=== PATIENT | female | born 1950 | race Caucasian/White ===

== ENCOUNTER 2016-12-21 10:40 | Emergency (ER) | payer OTHER ==
[~2016-12-21] VITALS: Ht 165.1 cm; Wt 80.0 kg
[~2016-12-21 10:40] MED LIST: DIPH2%T PO; NACL5%O LEFT EYE; OLAN2.5 PO; POLY10O OS; SYSTSOL7 EACH EYE; VITA100020 SL; VITA200017 PO
[2016-12-21 10:42] VITALS: BP 116/59; PULSE 70; RESP 12; TEMP 98.4; O2SAT 98
[2016-12-21] MEDS ORDERED: SYSTSOL9 RIGHT EYE (12:01)
[2016-12-21] MEDS ORDERED: DIPH50TA3 PO (12:01)
[2016-12-21] MEDS ORDERED: DONE5TAB7 PO (12:01)
[2016-12-21] MEDS ORDERED: MAXI0.1O LEFT EYE (12:01)
[2016-12-21] MEDS ORDERED: VITA10002 PO (12:01)
[2016-12-21] MEDS ORDERED: ZYPR5TAB PO (12:01)
[2016-12-21] MEDS ORDERED: CHOL1TAB42 PO (12:01)
[2016-12-21] MEDS ORDERED: SODIUM CHLORIDE 0.9% FLUSH 5 ML FLUSH IVF PRN (12:15)
[2016-12-21 13:08] LABS: BLOOD, URINE NEG (NEG); COMMENT (UR) CATH-CULT NOT IND; CULTURE IF INDICATED CATH CULTURE NOT IND; GLUCOSE,URINE NEG (NEG); KETONE, URINE NEG (NEG); MUCUS URINE FEW /lpf (OCC); NITRITE,URINE NEG (NEG); PH, URINE 6.5 (5.0-8.5); URINE COLOR YELLOW (YELLW/STRAW)
--- NOTE | 2016-12-21 13:15 | RADRPT ---
EXAM DATE/TIME: 12/21/2016 12:41 [facility] COMPARISON: No previous studies available for comparison. INDICATIONS : Syncope with shortness of breath. MEDICAL HISTORY : None. SURGICAL HISTORY : None. ENCOUNTER: Initial ACUITY: 1 day PAIN SCORE: Non-responsive. LOCATION: Bilateral chest FINDINGS: A single view of the chest demonstrates the lungs to be symmetrically aerated without evidence of mas s, infiltrate or effusion. The cardiomediastinal contours are unremarkable. Osseous structures are intact. CONCLUSION: No acute disease. Jb Montero MD on December 21, 2016 at 13:13 Board Certified Radiologist. This report was verified electronically.
--- NOTE | 2016-12-21 13:15 | RADRPT ---
EXAM DATE/TIME: 12/21/2016 12:55 [facility] COMPARISON: CT BRAIN W/O CONTRAST, October 27, 2013, 19:37. INDICATIONS : Found on floor, altered mental status RADIATION DOSE: 56.35 CTDIvol (mGy) MEDICAL HISTORY : Dementia. Cardiovascular disease Renal insufficiency. SURGICAL HISTORY : Appendectomy. Cholecystectomy.Hysterectomy. ENCOUNTER: Initial ACUITY: 1 day PAIN SCALE: Non-responsive LOCATION: cranial TECHNIQUE: Multiple contiguous axial images were obtained of the head. Using automated exposure control and adj ustment of the mA and/or kV according to patient size, radiation dose was kept as low as reasonably a chievable to obtain optimal diagnostic quality images. FINDINGS: CEREBRUM: The ventricles are normal for age. No evidence of midline shift, mass lesion, hemorrhage or acute in farction. No extra-axial fluid collections are seen. POSTERIOR FOSSA: The cerebellum and brainstem are intact. The 4th ventricle is midline. The cerebellopontine angle i s unremarkable. EXTRACRANIAL: The visualized portion of the orbits is intact. 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 SKULL: The calvaria is intact. No evidence of skull fracture. CONCLUSION: Negative for an acute process. Gonzalo Red MD FACR on December 21, 2016 at 13:12 Board Certified Radiologist. This report was verified electronically.
--- NOTE | 2016-12-21 13:57 | PD ---
HPI Chief Complaint: Medical Clearance Time Seen by Provider: 12:07 Travel History International Travel<30 days: No Contact w/Intl Traveler<30days: No Traveled to known affect area: No History of Present Illness HPI patient is a 66-year-old female presents emergency department for complaints of tremors. She has a history of dementia and according to the aide speaks but is mostly on telemetry. This extremely limits history. Patient apparently was found on the floor next to her bed this morning. Unsure if she fell or if she lowered herself to the ground. According to the aide who is with her while eating breakfast and she had some jerking motions of both upper extremities both lower extremities. This caused her to drop her juice this morning while she was eating. The aide states that she has not seen any of these tremors since breakfast this morning. She describes a jerking motion of all the extremities which happened only a few times and lasted for only a split second. No loss of consciousness. I discussed with the physician on-call decided she should be transferred to emergency department for evaluation. Otherwise the patient is been acting her normal self. PFSH Past Medical History Bipolar Disorder: Yes Dementia: Yes Diminished Hearing: No Headaches: Yes Insomnia: Yes Psychiatric: Yes (CHRONIC ISSUES) ?: Not Menopausal: Yes : 4 Para: 4 Miscarriage: 0 : 0 Tubal Ligation: Yes Past Surgical History Appendectomy: Yes Section: Yes (x4) Cholecystectomy: Yes Gynecologic Surgery: Yes (C SECTION X4 PER MEDICAL RECORD, ) Hysterectomy: Yes Oral Surgery: Yes Other Surgery: Yes (SHOULDER) Social History Alcohol Use: No (Hx ETOH but denies abuse.) Tobacco Use: No (States was smoking 3PPD) Substance Use: No (Patient denies.) Allergies-Medications (Allergen,Severity, Reaction): Coded Allergies: Codeine (Verified Allergy, Unknown, 12/21/16) Per [facility]. Opiate Agonists (Narcotics) (Unverified Allergy, Unknown, 12/21/16) SENT FROM FACILITY LISTED ALLERGY Reported Meds & Prescriptions Reported Meds & Active Scripts Active Reported Systane Ultra Opth (Polyethylene Glycol-Propylene Opth) 0.4-0.3% Soln 2 Drop BID Diphenhydramine HCl (Diphenhydramine HCl (Sleep)) 50 Mg Tab 50 Mg PO BID Vitamin D-3 (Cholecalciferol) 2,000 Unit Tab 2,000 Units PO DAILY Vitamin B-12 (Cyanocobalamin) 1,000 Mcg Tab 1,000 Mcg PO DAILY Zyprexa (Olanzapine) 5 Mg Tab 5 Mg PO HS Donepezil 5 Mg Tab 5 Mg PO HS Maxitrol Opth Oint (Hxfkhpxs-Pnbylfnpp-Yokecxpoheykr Opth Oint) 3.5 Gm Oint 1 Applic LEFT EYE QID Review of Systems Except as stated in HPI: all other systems reviewed are Neg Physical Exam Narrative GENERAL: Well-developed well-nourished no apparent distress. Smiles and pleasantly confused. Appears severely demented. SKIN: Warm and dry. There is a small abrasion to the left forearm. Superficial. It is also a small abrasion to the left knee. HEAD: Atraumatic. Normocephalic. No boyle signs no raccoons eyes. EYES: Pupil equal and round. 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 No scleral icterus. No injection or drainage. ENT: No nasal bleeding or discharge. Mucous membranes pink and moist. TMs clear bilaterally NECK: Trachea midline. No JVD. CARDIOVASCULAR: Regular rate and rhythm. No murmur appreciated. RESPIRATORY: No accessory muscle use. Clear to auscultation. Breath sounds equal bilaterally. GASTROINTESTINAL: Abdomen soft, non-tender, nondistended. Hepatic and splenic margins not palpable. MUSCULOSKELETAL: No obvious deformities. No clubbing. No cyanosis. No edema. NEUROLOGICAL: Awake and alert. Follows commands in all 4 extremities. No obvious cranial nerve abnormalities. Ambulates narrow based gait balanced and coordinated. PSYCHIATRIC: Appropriate mood and affect; insight and judgment normal. Data Data Last Documented VS Vital Signs Date Time Temp Pulse Resp B/P Pulse Ox O2 Delivery O2 Flow Rate FiO2 12/21/16 14:29 63 99 12/21/16 10:42 98.4 12 116/59 Room Air Orders Basic Metabolic Panel (Bmp) (12/21/16 12:14) Complete Blood Count With Diff (12/21/16 12:14) Prothrombin Time / Inr (Pt) (12/21/16 12:14) Act Partial Throm Time (Ptt) (12/21/16 12:14) Troponin I (12/21/16 12:14) Thyroid Stimulating Hormone (12/21/16 12:14) Urinalysis - C+S If Indicated (12/21/16 12:14) Chest, Single Ap (12/21/16 12:14) Ct Brain W/O Iv Contrast(Rout) (12/21/16 12:14) Blood Glucose (12/21/16 12:14) Ecg Monitoring (12/21/16 12:14) Iv Access Insert/Monitor (12/21/16 12:14) Oximetry (12/21/16 12:14) Sodium Chloride 0.9% Flush (Ns Flush) (12/21/16 12:15) Cath For Specimen (12/21/16 12:14) Ct Cerv Spine W/O Contrast (12/21/16 ) Labs Laboratory Tests Test 12/21/16 12/21/16 12:42 14:51 Urine Color YELLOW Urine Turbidity CLEAR Urine pH 6.5 Urine Specific Bryant 1.016 Urine Protein NEG mg/dL Urine Glucose (UA) NEG mg/dL Urine Ketones NEG mg/dL Urine Occult Blood NEG Urine Nitrite NEG Urine Bilirubin NEG Urine Urobilinogen LESS THAN 2.0 MG/DL Urine Leukocyte Esterase TRACE Urine RBC 1 /hpf Urine WBC 1 /hpf Urine Mucus FEW /lpf Microscopic Urinalysis Comment CATH-CULT NOT IND White Blood Count 5.8 TH/MM3 Red Blood Count 4.08 MIL/MM3 Hemoglobin 12.8 GM/DL Hematocrit 37.0 % Mean Corpuscular Volume 90.7 FL Mean Corpuscular Hemoglobin 31.4 PG Mean Corpuscular Hemoglobin 34.6 % Concent Red Cell Distribution Width 13.0 % Platelet Count 213 TH/MM3 Mean Platelet Volume 8.5 FL Neutrophils (%) (Auto) 39.3 % Lymphocytes (%) (Auto) 49.2 % Monocytes (%) (Auto) 9.0 % Eosinophils (%) (Auto) 2.1 % Basophils (%) (Auto) 0.4 % Neutrophils # (Auto) 2.3 TH/MM3 Lymphocytes # (Auto) 2.9 TH/MM3 Monocytes # (Auto) 0.5 TH/MM3 Eosinophils # (Auto) 0.1 TH/MM3 Basophils # (Auto) 0.0 TH/MM3 CBC Comment DIFF FINAL Differential Comment Prothrombin Time 10.8 SEC Prothromb Time International 1.0 RATIO Ratio Activated Partial 28.8 SEC Thromboplast Time Sodium Level 140 MEQ/L Potassium Level 3.5 MEQ/L Chloride Level 107 MEQ/L Carbon Dioxide Level 24.9 MEQ/L Anion Gap 8 MEQ/L Blood Urea Nitrogen 20 MG/DL Creatinine 0.74 MG/DL Estimat Glomerular Filtration 79 ML/MIN Rate Random Glucose 96 MG/DL Calcium Level 8.6 MG/DL Troponin I LESS THAN 0.02 NG/ML Thyroid Stimulating Hormone 0.701 uIU/ML 3rd Gen [facility] Medical Decision Making Medical Screen Exam Complete: Yes Emergency Medical Condition: Yes Differential Diagnosis Fall, tremor, head injury, neck injury, electro-light abnormality, dehydration. Narrative Course Patient was roomed emergency department she appears well in no apparent distress. CT head and C-spine are negative. Electrolytes within normal limits and urine is noninfected. Patient has not demonstrated any abnormal movements to me while in the emergency department or to the aide while she is in emergency department. She is stable for discharge this time further workup as an outpatient. My overall impression is a severely demented woman who probably had a fall this morning and some abnormal jerking movements. However she seems to have suffered no radiographically significant traumatic event. She has mild abrasions on her forearm as well as her arm which are inconsequential and not indications for x-rays at this time. Diagnosis Primary Impression: Tremor Additional Instructions: Patient workup including CT head CMP CBC CT C-spine all negative. She has not exhibited any abnormal tremors or physical findings in the emergency department. She is stable for return to her facility and further workup by facility physician. Disposition: 01 DISCHARGE HOME Condition: Stable Jb Holman MD Dec 21, 2016 13:57
[2016-12-21 14:29] VITALS: PULSE 63; O2SAT 99
--- NOTE | 2016-12-21 14:36 | RADRPT ---
EXAM DATE/TIME: 12/21/2016 12:55 [facility] COMPARISON: No previous studies available for comparison. INDICATIONS : Found on floor, altered mental status RADIATION DOSE: 30.68 CTDIvol (mGy) MEDICAL HISTORY : Dementia. Cardiovascular disease Renal insufficiency. SURGICAL HISTORY : Appendectomy. Cholecystectomy. Hysterectomy. ENCOUNTER: Initial ACUITY: 1 day PAIN SCALE: Non-responsive LOCATION: Neck TECHNIQUE: Volumetric scanning of the cervical spine was performed. Multiplanar reconstructions i n the sagittal, coronal and oblique axial planes were performed. Using automated exposure control a nd adjustment of the mA and/or kV according to patient size, radiation dose was kept as low as reason ably achievable to obtain optimal diagnostic quality images. FINDINGS: There are mild degenerative changes subluxations at C5-C6 and C6-C7. Anterior osteoph ytes are seen at C4-C5, C5-C6 and C6-C7. C1 and C2 are intact. C2-C3: There is mild uncinate ridging present without significant spinal stenosis. Neural foramina are adequate. C3-C4: Mild facet disease present with minimal bilateral neural foraminal encroachment. C4-C5: Moderate facet disease is present on the right when compared to the left with moderate right- sided neural foraminal encroachment. C5-C6: Moderate facet disease is present with bilateral neural foraminal encroachment. C6-C7: The bony spinal canal is normal in size. No evidence of disc bulge or herniation. The neura l foramina are bilaterally patent. C7-T1: The bony spinal canal is normal in size. No evidence of disc bulge or herniation. The neura l foramina are bilaterally patent. CONCLUSION: Degenerative changes as described above. There is no evidence for fracture. Gonzalo Red MD FACR on December 21, 2016 at 13:59 Board Certified Radiologist. This report was verified electronically.
[2016-12-21 15:46] LABS: AUTOMATED NEUTROPHIL # 2.3 TH/MM3 (1.8-7.7); BASOPHIL % 0.4 % (0.0-2.0); EOSINOPHIL # 0.1 TH/MM3 (0-0.4); EOSINOPHIL % 2.1 % (0.0-4.0); HEMO FLAGS DIFF FINAL; LYMPH % 49.2 % (9.0-44.0); LYMPHOCYTE # 2.9 TH/MM3 (1.0-4.8); MEAN CELL VOLUME 90.7 FL (80.0-100.0); MEAN CORPUSCULAR HEMOGLOBIN 31.4 PG (27.0-34.0); MEAN CORPUSCULAR HGB CONC 34.6 % (32.0-36.0); NEUT % 39.3 % (16.0-70.0); PLATELET COUNT 213 TH/MM3 (150-450); RED BLOOD COUNT 4.08 MIL/MM3 (4.00-5.30); WHITE BLOOD COUNT 5.8 TH/MM3 (4.0-11.0)
[2016-12-21 15:52] LABS: ANION GAP 8 MEQ/L (5-15); BICARBONATE 24.9 MEQ/L (21.0-32.0); BLOOD UREA NITROGEN 20 MG/DL (7-18); CHLORIDE 107 MEQ/L (98-107); GLOMERULAR FILTRATION RATE 79 ML/MIN (>89); POTASSIUM 3.5 MEQ/L (3.5-5.1); SODIUM (NA) 140 MEQ/L (136-145)
[2016-12-21 16:03] LABS: APTT (PATIENT) 28.8 SEC (24.3-30.1); PROTHROMBIN TIME - PATIENT 10.8 SEC (9.8-11.6)
== END 2016-12-21 16:43 | disposition home or self-care (01) ==
LOC: NEPB 10:40
DX: R25.1 Tremor, unspecified (principal); F03.90 Unspecified dementia, unspecified severity, without behavioral disturbance, psychotic disturbance, mood disturbance, and anxiety; G47.00 Insomnia, unspecified; Z86.59 Personal history of other mental and behavioral disorders; Z87.891 Personal history of nicotine dependence
CPT/HCPCS: 70450; 71010; 72125; 80048; 81001; 84443; 84484; 85025; 85610; 85730; 99284; P9612

== ENCOUNTER 2017-01-10 10:08 | Emergency (ER) | payer OTHER ==
[~2017-01-10] VITALS: Ht 144.8 cm; Wt 74.0 kg
[~2017-01-10 10:08] MED LIST changes: +CHOL1TAB42 PO; -DIPH2%T PO; +DIPH50TA3 PO; +DONE5TAB7 PO; +MAXI0.1O LEFT EYE; -NACL5%O LEFT EYE; -OLAN2.5 PO; -POLY10O OS; -SYSTSOL7 EACH EYE; +SYSTSOL9 RIGHT EYE; +VITA10002 PO; -VITA100020 SL; -VITA200017 PO; +ZYPR5TAB PO
[2017-01-10 10:11] VITALS: BP 120/58; PULSE 66; RESP 17; TEMP 98.4; O2SAT 96
[2017-01-10] MEDS ORDERED: SODIUM CHLOR 0.9% 1000 ML INJ 1,000 ML IV ONE (10:15)
--- NOTE | 2017-01-10 10:24 | PD ---
HPI Chief Complaint: Syncope/Near-Syncope Time Seen by Provider: 10:15 Travel History International Travel<30 days: No Contact w/Intl Traveler<30days: No Traveled to known affect area: No History of Present Illness HPI Cyst 66 year-old woman who presents to the emergency department referred in from [facility] where she stays after near syncopal/syncopal episodes this morning. EMS reports that she had 2 episodes of diarrhea this morning and after each one had a near syncopal episode where she kind of slumped over for a few seconds and had to be assisted by jail staff. She has a history of dementia as well as severe chronic psychiatric disease. She doesn't really talk at all or answer questions. She is however normally ambulatory and somewhat independent. History Past Medical History Narrative Medical Right shoulder injury/dislocation Dementia with agitation Chronic psychiatric illness of cognitive impairment Menopausal: Yes : 4 Para: 4 Social History Alcohol Use: No (Hx ETOH but denies abuse.) Tobacco Use: No (States was smoking 3PPD) Allergies-Medications (Allergen,Severity, Reaction): Coded Allergies: Codeine (Verified Allergy, Unknown, 12/21/16) Per [facility]. Opiate Agonists (Narcotics) (Unverified Allergy, Unknown, 12/21/16) SENT FROM FACILITY LISTED ALLERGY Reported Meds & Prescriptions Reported Meds & Active Scripts Active Loperamide (Loperamide HCl) 2 Mg Tab 2 Mg PO DIRECTED PRN One tablet after each loose stool. Not to exceed 8 tablets per day. Reported Systane Ultra Opth (Polyethylene Glycol-Propylene Opth) 0.4-0.3% Soln 2 Drop RIGHT EYE BID Diphenhydramine HCl (Diphenhydramine HCl (Sleep)) 50 Mg Tab 50 Mg PO BID Vitamin D-3 (Cholecalciferol) 2,000 Unit Tab 2,000 Units PO DAILY Vitamin B-12 (Cyanocobalamin) 1,000 Mcg Tab 1,000 Mcg PO DAILY Zyprexa (Olanzapine) 5 Mg Tab 5 Mg PO HS Donepezil 5 Mg Tab 5 Mg PO HS Maxitrol Opth Oint (Szwakvrv-Xmghjkyrs-Tgucfdymzqjoo Opth Oint) 3.5 Gm Oint 1 Applic LEFT EYE QID Review of Systems Except as stated in HPI: all other systems reviewed are Neg Physical Exam Narrative GENERAL: 66 year-old woman, not really verbal, no acute distress. SKIN: Warm and dry. HEAD: Atraumatic. Normocephalic. EYES: Pupils equal and round. No scleral icterus. No injection or drainage. ENT: No nasal bleeding or discharge. Mucous membranes pink and moist. NECK: Trachea midline. No JVD. CARDIOVASCULAR: Regular rate and rhythm. No murmur appreciated. RESPIRATORY: No accessory muscle use. Clear to auscultation. Breath sounds equal bilaterally. GASTROINTESTINAL: Abdomen soft, non-tender, nondistended. Hepatic and splenic margins not palpable. MUSCULOSKELETAL: No obvious deformities. No edema. NEUROLOGICAL: Awake and alert. No eye contact. She has some facial asymmetry with sort ptosis on the left and 1 feet I, but no evidence of facial droop. Moves all extremities. PSYCHIATRIC: Flat affect. No emotional responses stimuli. RECTAL: Light brown stool in the rectal vault. Guiaic positive. Data Data Last Documented VS Vital Signs Date Time Temp Pulse Resp B/P Pulse Ox O2 Delivery O2 Flow Rate FiO2 01/10/17 11:14 78 17 135/60 99 Room Air 01/10/17 10:11 98.4 Orders Electrocardiogram (01/10/17 ) Complete Blood Count With Diff (01/10/17 10:15) Comprehensive Metabolic Panel (01/10/17 10:15) Iv Access Insert/Monitor (01/10/17 10:15) Sodium Chlor 0.9% 1000 Ml Inj (Ns 1000 M (01/10/17 10:15) Labs Laboratory Tests Test 01/10/17 10:00 White Blood Count 5.7 TH/MM3 Red Blood Count 4.03 MIL/MM3 Hemoglobin 12.5 GM/DL Hematocrit 37.0 % Mean Corpuscular Volume 91.8 FL Mean Corpuscular Hemoglobin 31.1 PG Mean Corpuscular Hemoglobin 33.8 % Concent Red Cell Distribution Width 12.8 % Platelet Count 179 TH/MM3 Mean Platelet Volume 8.3 FL Neutrophils (%) (Auto) 86.7 % Lymphocytes (%) (Auto) 6.7 % Monocytes (%) (Auto) 6.0 % Eosinophils (%) (Auto) 0.4 % Basophils (%) (Auto) 0.2 % Neutrophils # (Auto) 5.0 TH/MM3 Lymphocytes # (Auto) 0.4 TH/MM3 Monocytes # (Auto) 0.3 TH/MM3 Eosinophils # (Auto) 0.0 TH/MM3 Basophils # (Auto) 0.0 TH/MM3 CBC Comment DIFF FINAL Differential Comment Sodium Level 142 MEQ/L Potassium Level 3.2 MEQ/L Chloride Level 109 MEQ/L Carbon Dioxide Level 22.8 MEQ/L Anion Gap 10 MEQ/L Blood Urea Nitrogen 26 MG/DL Creatinine 0.84 MG/DL Estimat Glomerular Filtration 68 ML/MIN Rate Random Glucose 184 MG/DL Calcium Level 8.3 MG/DL Total Bilirubin 0.7 MG/DL Aspartate Amino Transf 18 U/L (AST/SGOT) Alanine Aminotransferase 16 U/L (ALT/SGPT) Alkaline Phosphatase 80 U/L Total Protein 6.7 GM/DL Albumin 3.7 GM/DL [facility] Medical Decision Making Medical Screen Exam Complete: Yes Emergency Medical Condition: Yes Interpretation(s) My review of EKG: Normal sinus rhythm at a rate of 64, normal axis, normal intervals, inferior T-wave flattening. QRS 94, QTc 442. CBC unremarkable CMP remarkable for mildly elevated BUN 26, creatinine 0.84 Differential Diagnosis Diarrhea, dizziness, orthostasis, adverse medication effect, arrhythmia, ACS, other Narrative Course Medical decision-making 66 old woman with 2 episodes of syncope/syncope in the setting of diarrhea. Looks generally well. We'll check labs, EKG, IV fluid rehydration, reassess. FINAL: Labs show elevated BUN. This likely suggests dehydration. Some concern for GI bleed. Rectal exam was performed at this point and demonstrated at bedtime light brown liquid stool in the rectal vault, no obvious blood but guaiac positive. We'll continue IV fluids. Imodium. We will road test and if stable, discharge. Diagnosis Primary Impression: Dehydration Additional Impression: Syncope Qualified Code: R55 - Syncope, unspecified syncope type Additional Instructions: Patient likely has syncope/passing out related to diarrhea and dehydration. She did have some microscopic blood in her stool. Recommend she follow up with this with her primary physician when she is feeling better. Use Imodium as needed for diarrhea. Drink plenty of fluids stay well-hydrated. Follow-up with your primary physician for recheck in the next 2-4 days. Return to the emergency department for any new or worsening symptoms. Med/Other Pt SpecificInfo: Prescription(s) given Scripts Loperamide 2 Mg Tab2 Mg PO DIRECTED PRN (DIARRHEA) #8 TAB One tablet after each loose stool. Not to exceed 8 tablets per day. Prov:Viktor Bhatia MD 01/10/17 Disposition: 01 DISCHARGE HOME Condition: Stable Viktor Bhatia MD Jan 10, 2017 10:24
[2017-01-10 10:42] LABS: BASOPHIL % 0.2 % (0.0-2.0); EOSINOPHIL % 0.4 % (0.0-4.0); HEMO FLAGS DIFF FINAL; LYMPH % 6.7 % (9.0-44.0); LYMPHOCYTE # 0.4 TH/MM3 (1.0-4.8); MEAN CELL VOLUME 91.8 FL (80.0-100.0); MEAN CORPUSCULAR HEMOGLOBIN 31.1 PG (27.0-34.0); MEAN CORPUSCULAR HGB CONC 33.8 % (32.0-36.0); NEUT % 86.7 % (16.0-70.0); PLATELET COUNT 179 TH/MM3 (150-450); RED BLOOD COUNT 4.03 MIL/MM3 (4.00-5.30); RED CELL DISTRIBUTION WIDTH 12.8 % (11.6-17.2); WHITE BLOOD COUNT 5.7 TH/MM3 (4.0-11.0)
[2017-01-10 11:02] LABS: ALKALINE PHOSPHATASE 80 U/L (45-117); TOTAL BILIRUBIN ADULT 0.7 MG/DL (0.2-1.0)
[2017-01-10 11:09] LABS: ALT (GPT) 16 U/L (10-53); ANION GAP 10 MEQ/L (5-15); AST (GOT) 18 U/L (15-37); BICARBONATE 22.8 MEQ/L (21.0-32.0); BLOOD UREA NITROGEN 26 MG/DL (7-18); CHLORIDE 109 MEQ/L (98-107); GLOMERULAR FILTRATION RATE 68 ML/MIN (>89); POTASSIUM 3.2 MEQ/L (3.5-5.1); SODIUM (NA) 142 MEQ/L (136-145)
[2017-01-10 11:14] VITALS: BP 135/60; PULSE 78; RESP 17; O2SAT 99
[2017-01-10] MEDS ORDERED: LOPE2TAB3 PO (11:32)
[2017-01-10] MEDS ORDERED: LOPERAMIDE HCL 2 MG CAP PO ONE (11:45)
[2017-01-10 11:50] VITALS: BP 130/67; TEMP 97.8
--- NOTE | 2017-01-11 11:39 | EKG ---
Date Performed: 01/10/2017 Time Performed: 10:20:37 PTAGE: 66 years EKG: Sinus rhythm NONSPECIFIC T-WAVE ABNORMALITY BORDERLINE ECG PREVIOUS TRACING : 12/29/2014 22.53 DOCTOR: Viktor Dickens Interpretating Date/Time 01/11/2017 11:38:37
== END 2017-01-10 11:50 | disposition home or self-care (01) ==
LOC: NEPC 10:08
DX: E86.0 Dehydration (principal); R55 Syncope and collapse; F03.91 Unspecified dementia, unspecified severity, with behavioral disturbance; R94.31 Abnormal electrocardiogram [ECG] [EKG]
CPT/HCPCS: 80053; 85025; 93005; 96360; 99284; J7030

== ENCOUNTER 2017-10-28 15:04 | Emergency (ER) | payer MEDICARE, OTHER ==
[~2017-10-28] VITALS: Ht 165.1 cm; Wt 65.0 kg
[~2017-10-28 15:04] MED LIST changes: +LOPE2TAB3 PO
[2017-10-28 15:09] VITALS: BP 184/81; PULSE 65
[2017-10-28 15:19] VITALS: BP 184/81; PULSE 59; RESP 18; TEMP 99.5; O2SAT 99
[2017-10-28] MEDS ORDERED: DIPH25CA PO (15:22)
[2017-10-28 15:24] VITALS: BP 154/74
--- NOTE | 2017-10-28 15:32 | PD ---
HPI Chief Complaint: Fall Time Seen by Provider: 15:12 Travel History International Travel<30 days: No Contact w/Intl Traveler<30days: No Traveled to known affect area: No History of Present Illness HPI 67yo F with PMH of dementia presents to the ED for evaluation after a witnessed fall at assisted living facility around half an hour ago. Pt has advance dementia and is at baseline mental status as per staff. As per staff, she trip and fell and onto her right side. There is a hematoma in her right maxilla and they were worried about her right hip so they didnt let her ambulate. Pt speaks but does not make sense and does not really follow command which is her baseline. History is limited and pt denies any pain. Staff said pt has frequent falls and not on anticoagulation. Staff denies any fever, cough, vomiting or complain of abdominal pain. PFSH Past Medical History Bipolar Disorder: Yes Dementia: Yes Diminished Hearing: No Headaches: Yes Insomnia: Yes Psychiatric: Yes Menopausal: Yes : 4 Para: 4 Miscarriage: 0 : 0 Tubal Ligation: Yes Past Surgical History Appendectomy: Yes Section: Yes (x4) Cholecystectomy: Yes Gynecologic Surgery: Yes (C SECTION X4 PER MEDICAL RECORD, ) Hysterectomy: Yes Oral Surgery: Yes Other Surgery: Yes (SHOULDER) Social History Alcohol Use: No Tobacco Use: No Substance Use: No Allergies-Medications (Allergen,Severity, Reaction): Coded Allergies: Opioids - Morphine Analogues (Unverified Allergy, Unknown, 10/28/17) SENT FROM FACILITY LISTED ALLERGY Opioids-Meperidine and Related (Unverified Allergy, Unknown, 10/28/17) SENT FROM FACILITY LISTED ALLERGY Opioids-Methadone and Related (Unverified Allergy, Unknown, 10/28/17) SENT FROM FACILITY LISTED ALLERGY codeine (Unverified Allergy, Unknown, 10/28/17) Per [facility]. Reported Meds & Prescriptions Reported Meds & Active Scripts Active Reported Diphenhydramine (Diphenhydramine HCl) 25 Mg Cap 50 Mg PO HS PRN Vitamin D-3 (Cholecalciferol) 2,000 Unit Tab 2,000 Units PO DAILY Vitamin B-12 (Cyanocobalamin) 1,000 Mcg Tab 1,000 Mcg PO DAILY Zyprexa (Olanzapine) 5 Mg Tab 5 Mg PO HS Donepezil 5 Mg Tab 5 Mg PO HS Maxitrol Opth Oint (Ivluelhl-Hxlamyxqp-Lhdzghazznwpg Opth Oint) 3.5 Gm Oint 1 Applic LEFT EYE QID Review of Systems Except as stated in HPI: all other systems reviewed are Neg Physical Exam Narrative GENERAL: 67yo F not in distress. SKIN: Focused skin assessment warm/dry. HEAD: +Hematoma right maxilla. EYES: Left eye: Pt has left eye disease and pupils are not reactive which is baseline. Also with yellow discharge that pt has warm compresses for. Right pupil 4mm. ENT: No nasal bleeding or discharge. Mucous membranes pink and moist. NECK: Trachea midline. No JVD. CARDIOVASCULAR: Regular rate and rhythm. No murmur appreciated. RESPIRATORY: No accessory muscle use. Clear to auscultation. Breath sounds equal bilaterally. GASTROINTESTINAL: Abdomen soft, non-tender, nondistended. MUSCULOSKELETAL: No obvious deformities. No clubbing. No cyanosis. No edema. NEUROLOGICAL: Awake and alert. Pt speaks but could not comprehend what she is saying which is baseline. Pt moves all extremities. Does not seem to be in pain on passive movement either. Pleasantly demented. PSYCHIATRIC: Dementia. Data Data Last Documented VS Vital Signs Date Time Temp Pulse Resp B/P (MAP) Pulse Ox O2 Delivery O2 Flow Rate FiO2 10/28/17 15:24 154/74 (100) 10/28/17 15:19 99.5 59 18 99 Room Air Orders Orders Ct Brain W/O Iv Contrast(Rout) (10/28/17 ) Ct Cerv Spine W/O Contrast (10/28/17 ) Ct Facial Bones W/O Iv Cont (10/28/17 ) Hip, Uni(Ap&Lat) W Ap Pelvis (10/28/17 ) MDM Medical Decision Making Medical Screen Exam Complete: Yes Emergency Medical Condition: Yes Differential Diagnosis Fracture vs. ICH vs. contusion Narrative Course 67yo pleasantly demented patient brought in by assisted living after a witnessed call with no LOC. Pt is at baseline mental status. History is limited but do not see any signs of trauma besides the hematoma in right maxilla. Pt not complaining of pain anywhere. Vital signs showed no fever, no tachycardia. Initially elevated BP at 184/81 but repeat showed BP 154/74. CT cspine showed no acute fracture. CT brain negative. Xray right hip negative. CT facial showed no facial bone fracture. Facial hematoma in right malar eminence. Left globe prosthesis. Pt is at baseline mental status and will be discharge back to [facility]. Diagnosis Primary Impression: Fall Qualified Codes: W19.XXXA - Unspecified fall, initial encounter Patient Instructions: General Instructions Departure Forms: Tests/Procedures Additional Instructions: Please follow up with your primary care physician in 2-3 days. Return to the ED if symptoms worsen. Med/Other Pt SpecificInfo: No Change to Meds Disposition: 01 DISCHARGE HOME Condition: Stable Darlene Saxena DO Oct 28, 2017 15:32
--- NOTE | 2017-10-28 16:15 | RADRPT ---
EXAM DATE/TIME: 10/28/2017 15:59 [facility] COMPARISON: No previous studies available for comparison. INDICATIONS : Right hip pain after fall. MEDICAL HISTORY : Dementia. Cardiovascular disease Renal insufficiency. SURGICAL HISTORY : Appendectomy. Cholecystectomy.Hysterectomy. ENCOUNTER: Initial ACUITY: 1 day PAIN SCORE: Non-responsive. LOCATION: Right hip. FINDINGS: Examination of the right hip was performed with AP Pelvis. The primary and secondary trabecular murali millie of the femoral neck is intact. The hip joint is of normal width without significant sclerosis or bony hypertrophy. The acetabulum is grossly intact. CONCLUSION: 1. No acute bony abnormality. Mild osteoarthritis of the hips. Merrill Canela MD on October 28, 2017 at 16:12 Board Certified Radiologist. This report was verified electronically.
--- NOTE | 2017-10-28 16:50 | RADRPT ---
EXAM DATE/TIME: 10/28/2017 16:13 [facility] COMPARISON: CT BRAIN W/O CONTRAST, December 21, 2016, 12:55. INDICATIONS : Trauma, fall. Hematoma to right side of head. RADIATION DOSE: 46.88 CTDIvol (mGy) MEDICAL HISTORY : Dementia. Cardiovascular disease SURGICAL HISTORY : Appendectomy. Cholecystectomy.Hysterectomy. ENCOUNTER: Initial ACUITY: 1 day PAIN SCALE: 4/10 LOCATION: Right cranial TECHNIQUE: Multiple contiguous axial images were obtained of the head. Using automated exposure control and adj ustment of the mA and/or kV according to patient size, radiation dose was kept as low as reasonably a chievable to obtain optimal diagnostic quality images. DICOM format image data is available electro nically for review and comparison. FINDINGS: CEREBRUM: Mild to moderate diffuse renal atrophy. The ventricles are normal for age. No evidence of midline sh ift, mass lesion, hemorrhage or acute infarction. No extra-axial fluid collections are seen. POSTERIOR FOSSA: The cerebellum and brainstem are intact. The 4th ventricle is midline. The cerebellopontine angle i s unremarkable. 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 SKULL: The calvaria is intact. No evidence of skull fracture. CONCLUSION: 1. No acute intracranial abnormality or significant interval change. Kobi Jerry MD on October 28, 2017 at 16:47 Board Certified Radiologist. This report was verified electronically.
--- NOTE | 2017-10-28 16:54 | RADRPT ---
EXAM DATE/TIME: 10/28/2017 16:13 [facility] COMPARISON: CT CERVICAL SPINE W/O CONTRAST, December 21, 2016, 12:55. INDICATIONS : Trauma, fall. Neck pain. RADIATION DOSE: 42.15 CTDIvol (mGy) MEDICAL HISTORY : Dementia. Cardiovascular disease SURGICAL HISTORY : Appendectomy. Cholecystectomy.Hysterectomy. ENCOUNTER: Initial ACUITY: 1 day PAIN SCALE: 5/10 LOCATION: neck TECHNIQUE: Volumetric scanning of the cervical spine was performed. Multiplanar reconstructions in the sagittal, coronal and oblique axial planes were performed. Using automated exposure control and adjustment o f the mA and/or kV according to patient size, radiation dose was kept as low as reasonably achievable to obtain optimal diagnostic quality images. DICOM format image data is available electronically f or review and comparison. FINDINGS: Vertebral body heights are maintained. Osseous structures are intact without evidence for acute bony fracture. Dens is intact. Stable 2 mm retrolisthesis of C2 on C3, anterolisthesis of C4 on C5 and C5 on C6 and C6 on C7. There is a normal C1-2 relationship. Facets are normally aligned. Multilevel face t arthropathy. There is no significant prevertebral soft tissue hematoma. Multilevel degenerative spo ndylosis which was placed narrowing and disc osteophytes most prominent at C5-7. No significant cervi enrique adenopathy or gross mass. The thyroid appears unremarkable. Visualized lung apices are clear with out pneumothorax. CONCLUSION: 1. Redemonstration of multilevel degenerative spondylosis with stable 2 mm retrolisthesis of C2 on C3 and anterolisthesis of C4 on C5, C5 on C6 and C6 on C7. 2. No acute fracture. Kobi Jerry MD on October 28, 2017 at 16:48 Board Certified Radiologist. This report was verified electronically.
--- NOTE | 2017-10-28 16:56 | RADRPT ---
EXAM DATE/TIME: 10/28/2017 16:13 [facility] COMPARISON: No previous studies available for comparison. INDICATIONS : Trauma, fall. Right sided facial hematoma. RADIATION DOSE: 56.76 CTDIvol (mGy) MEDICAL HISTORY : Dementia. Cardiovascular disease SURGICAL HISTORY : Appendectomy. Cholecystectomy.Hysterectomy. ENCOUNTER: Initial ACUITY: 1 day PAIN SCORE: 5/10 LOCATION: Right facial TECHNIQUE: Volumetric scanning of the facial bones was performed. Using automated exposure control and adjustme nt of the mA and/or kV according to patient size, radiation dose was kept as low as reasonably achiev able to obtain optimal diagnostic quality images. DICOM format image data is available electronicall y for review and comparison. FINDINGS: The exam is degraded by motion artifact. No acute fractures identified. There is a left globe prosthe sis no opacification of the paranasal sinuses present. No bony destructive changes. Right facial osman vasu at the malar eminence. CONCLUSION: 1. Exam degraded by motion but no facial bone fracture identified. Facial hematoma at the right malar eminence. Left globe prosthesis. Merrill Canela MD on October 28, 2017 at 16:51 Board Certified Radiologist. This report was verified electronically.
[2017-10-28] MEDS ORDERED: TETANUS/DIPHTHERIA TOXOID ADULT 0.5 ML VIAL IM ONE (17:15)
== END 2017-10-28 17:56 | disposition home or self-care (01) ==
LOC: NEPE 15:04
DX: S00.83XA Contusion of other part of head, initial encounter (principal); F03.90 Unspecified dementia, unspecified severity, without behavioral disturbance, psychotic disturbance, mood disturbance, and anxiety; W01.0XXA Fall on same level from slipping, tripping and stumbling without subsequent striking against object, initial encounter; Y92.099 Unspecified place in other non-institutional residence as the place of occurrence of the external cause; Z23 Encounter for immunization
CPT/HCPCS: 70450; 70486; 72125; 73502; 90471; 90714

== ENCOUNTER 2017-12-16 15:50 | Emergency (ER) | payer MEDICARE ==
[~2017-12-16] VITALS: Ht 170.2 cm; Wt 70.0 kg
[~2017-12-16 15:50] MED LIST changes: +DIPH25CA PO; -DIPH50TA3 PO; -LOPE2TAB3 PO; -SYSTSOL9 RIGHT EYE
[2017-12-16 16:00] VITALS: BP 173/72; PULSE 57; RESP 20; TEMP 97.8; O2SAT 99
--- NOTE | 2017-12-16 16:13 | PD ---
HPI Chief Complaint: Fall Time Seen by Provider: 15:57 Travel History International Travel<30 days: No Contact w/Intl Traveler<30days: No Traveled to known affect area: No History of Present Illness HPI 67-year-old female presents to the emergency department via EMS from nursing facility for evaluation after a trip and fall. According to EMS, she tripped and fell in front of [facility] staff. She landed causing a laceration to her head. There was no loss of consciousness. The patient has history dementia and psychiatric illness. She does not answer questions appropriately. She will speak, but does not make any sense. According to chart, her last tetanus was in 2017. Moderate severity. She is not on anticoagulants. PFSH Past Medical History Bipolar Disorder: Yes Dementia: Yes Diminished Hearing: No Headaches: Yes Insomnia: Yes Psychiatric: Yes Immunizations Current: Yes Tetanus Vaccination: < 5 Years Influenza Vaccination: No ?: Not Menopausal: Yes : 4 Para: 4 Miscarriage: 0 : 0 Tubal Ligation: Yes Past Surgical History Appendectomy: Yes Section: Yes (x4) Cholecystectomy: Yes Eye Surgery: Yes (LEFT EYE PROSTHESIS) Gynecologic Surgery: Yes (C SECTION X4 PER MEDICAL RECORD, ) Hysterectomy: Yes Oral Surgery: Yes Other Surgery: Yes (SHOULDER) Social History Alcohol Use: No Tobacco Use: No Substance Use: No Allergies-Medications (Allergen,Severity, Reaction): Coded Allergies: Opioids - Morphine Analogues (Unverified Allergy, Unknown, 10/28/17) SENT FROM FACILITY LISTED ALLERGY Opioids-Meperidine and Related (Unverified Allergy, Unknown, 10/28/17) SENT FROM FACILITY LISTED ALLERGY Opioids-Methadone and Related (Unverified Allergy, Unknown, 10/28/17) SENT FROM FACILITY LISTED ALLERGY codeine (Unverified Allergy, Unknown, 10/28/17) Per [facility]. Reported Meds & Prescriptions Reported Meds & Active Scripts Active Reported Diphenhydramine (Diphenhydramine HCl) 25 Mg Cap 50 Mg PO HS PRN Vitamin D-3 (Cholecalciferol) 2,000 Unit Tab 2,000 Units PO DAILY Vitamin B-12 (Cyanocobalamin) 1,000 Mcg Tab 1,000 Mcg PO DAILY Zyprexa (Olanzapine) 5 Mg Tab 5 Mg PO HS Donepezil 5 Mg Tab 5 Mg PO HS Maxitrol Opth Oint (Nnibiwpr-Rdielpwcx-Cjghkqkbcqlwq Opth Oint) 3.5 Gm Oint 1 Applic LEFT EYE QID Review of Systems ROS Limitations: Altered Mental Status Except as stated in HPI: all other systems reviewed are Neg Physical Exam Narrative GENERAL: Well-nourished, well-developed female patient, afebrile. Patient is pleasantly demented. SKIN: Focused skin assessment warm/dry. HEAD: Normocephalic. Patient has approximately 4 cm laceration in a Y shape to the left forehead. ENT: Mucosa pink and moist. No erythema or exudates. No uvular edema. No uvular , palatal, or tonsillar deviation. Airway patent. Nasal turbinates appear normal without nasal blood, purulent drainage or septal hematoma. Bilateral tympanic membranes are clear without erythema or perforation. EYES: No scleral icterus. No injection or drainage. Patient has history of left prosthetic eye. NECK: Supple, trachea midline. No JVD or lymphadenopathy. CARDIOVASCULAR: Regular rate and rhythm without murmurs, gallops, or rubs. RESPIRATORY: Breath sounds equal bilaterally. No accessory muscle use. Lungs sounds are clear to auscultation. GASTROINTESTINAL: Abdomen soft, non-tender, nondistended. MUSCULOSKELETAL: No cyanosis, or edema. BACK: Nontender without obvious deformity. No CVA tenderness. No tenderness to palpation of the spine. C-collar remains in place. Data Data Last Documented VS Vital Signs Date Time Temp Pulse Resp B/P (MAP) Pulse Ox O2 Delivery O2 Flow Rate FiO2 12/16/17 21:36 12/16/17 18:30 71 18 99 Room Air 12/16/17 16:[address] Brain W/O Iv Contrast(Rout) (12/16/17 ) Ct Cerv Spine W/O Contrast (12/16/17 ) Ct Facial Bones W/O Iv Cont (12/16/17 ) Pelvis, Ap Only (Routine) (12/16/17 ) Lidocai-Epi 1%-1:100,000 Inj (Xylocaine- (12/16/17 16:15) Lidocai-Epi 1%-1:100,000 Inj (Xylocaine- (12/16/17 16:22) Lidocai-Epi 1%-1:100,000 Inj (Xylocaine- (12/16/17 17:00) Remove Cervical Collar (12/16/17 18:26) Ed Discharge Order (12/16/17 18:57) [facility] Medical Decision Making Medical Screen Exam Complete: Yes Emergency Medical Condition: Yes Medical Record Reviewed: Yes Interpretation(s) Last Impressions Pelvis X-Ray 12/16/17 0000 Signed Impressions: Service Date/Time: Saturday, December 16, 2017 16:22 - CONCLUSION: Unremarkable study. Hill Caicedo MD Maxillofacial CT 12/16/17 0000 Signed Impressions: Service Date/Time: Saturday, December 16, 2017 17:16 - CONCLUSION: No definite fracture is seen for technique. Hill Caicedo MD Head CT 12/16/17 0000 Signed Impressions: Service Date/Time: Saturday, December 16, 2017 17:16 - CONCLUSION: Lacunar infarction left thalamus not present previously without hemorrhage or mass effect. Hill Caicedo MD Cervical Spine CT 12/16/17 0000 Signed Impressions: Service Date/Time: Saturday, December 16, 2017 17:16 - CONCLUSION: Degenerative spondylosis without any significant compromise to the thecal sac or the exiting nerve roots. Hill Caicedo MD Differential Diagnosis Closed head injury versus intracranial abnormality versus laceration versus cervical strain versus cervical fracture Narrative Course 67-year-old female presents to the emergency department via EMS for evaluation after a trip and fall that was witnessed by staff. CT of the brain, CT of the cervical spine, CT of the facial bones, x-ray of the pelvis are ordered and pending. CT of the brain shows lacunar infarction left thalamus not present previously without hemorrhage or mass effect. CT of the cervical spine shows no acute fracture. CT of the facial bones is negative for fracture. X-ray of the pelvis is unremarkable. Patient is pleasantly demented. She is not a candidate for anticoagulants due to multiple falls. I discussed the case with attending physician, Dr. Saxena, who also examined patient. She agrees this patient is stable for discharge home. The patient was discharged in stable condition with instructions, including return instructions and follow up instructions. Procedures Procedure Narrative LACERATION LOCATION: Left forehead LENGTH: 6 cm NUMBER OF STITCHES/JEMMA: 12 simple interrupted sutures REPAIR: The area of the laceration was prepped with Betadine and sterilely draped. The laceration was infiltrated with 1% lidocaine with epinephrine. The wound was copiously irrigated and explored without evidence of foreign body, tendon injury or neurovascular injury. The wound was closed using 5-0 Prolene. This was a single layer repair. A sterile dressing was applied. The patient was advised to keep the dressing clean and dry. Patient tolerated the procedure well. Diagnosis Primary Impression: Closed head injury Qualified Codes: S09.90XA - Unspecified injury of head, initial encounter Additional Impression: Facial laceration Qualified Codes: S01.81XA - Laceration without foreign body of other part of head, initial encounter Referrals: Primary Care Physician call for appointment Patient Instructions: Care For Your Stitches (ED), Facial Laceration (ED), General Instructions, Head Injury (ED) Additional Instructions: Clean laceration twice daily with soap and water and apply wqed-epj-prspoae antibiotic ointment. Suture removal in 5 days. You may follow up with your primary care physician or return to the emergency department for this. Follow-up with your primary care physician. Return to the emergency department for any acute worsening of symptoms. Med/Other Pt SpecificInfo: No Change to Meds Disposition: 01 DISCHARGE HOME Condition: Stable Tanvir,Sabina SANTIAGO Dec 16, 2017 16:13
[2017-12-16] MEDS ORDERED: LIDOCAINE 1%/EPINEPHrine 1:100,000 SOLN 20 ML VIAL INFIL ONE (16:15)
[2017-12-16] MEDS ORDERED: LIDOCAINE 1%/EPINEPHrine 1:100,000 SOLN 50 ML VIAL ONE (16:22)
--- NOTE | 2017-12-16 16:50 | RADRPT ---
EXAM DATE/TIME: 12/16/2017 16:22 [facility] COMPARISON: No previous studies available for comparison. INDICATIONS : Fall. Pelvic pain. MEDICAL HISTORY : None. SURGICAL HISTORY : None. ENCOUNTER: Initial ACUITY: 1 day PAIN SCORE: Non-responsive. LOCATION: Bilateral pelvis FINDINGS: No definite fractures, or dislocations are identified. No definite lytic or sclerotic lesion is seen . The joint spaces are well maintained. CONCLUSION: Unremarkable study. Hill Caicedo MD on December 16, 2017 at 16:48 Board Certified Radiologist. This report was verified electronically.
[2017-12-16] MEDS ORDERED: LIDOCAINE 1%/EPINEPHrine 1:100,000 SOLN 50 ML VIAL INFIL ONE (17:00)
--- NOTE | 2017-12-16 17:49 | RADRPT ---
EXAM DATE/TIME: 12/16/2017 17:16 [facility] COMPARISON: CT BRAIN W/O CONTRAST, October 28, 2017, 16:13. INDICATIONS : Trip and fall, laceration superior to left eye. RADIATION DOSE: 29.43 CTDIvol (mGy) MEDICAL HISTORY : Dementia. Cardiovascular disease SURGICAL HISTORY : None. ENCOUNTER: Initial ACUITY: 1 day PAIN SCALE: 4/10 LOCATION: Left frontal TECHNIQUE: Multiple contiguous axial images were obtained of the head. Using automated exposure control and adj ustment of the mA and/or kV according to patient size, radiation dose was kept as low as reasonably a chievable to obtain optimal diagnostic quality images. DICOM format image data is available electro nically for review and comparison. FINDINGS: There is no evidence for intracranial hemorrhage, mass effect, mass lesions, edema, or extra-axial fl uid collections. The visualized bony structures appear intact. The ventricles are normal size for t he patient's age. Artificial globe is seen on the left side. There is an area of lacunar infarction involving the anteromedial portion of left thalamus measures 1.1 cm not present previously. Slight de gree of brain atrophy is seen. Slight periventricular white matter changes are seen nonspecific mostl y consistent with chronic small vessel ischemic changes. CONCLUSION: Lacunar infarction left thalamus not present previously without hemorrhage or mass effect . Hill Caicedo MD on December 16, 2017 at 17:44 Board Certified Radiologist. This report was verified electronically.
--- NOTE | 2017-12-16 17:56 | RADRPT ---
EXAM DATE/TIME: 12/16/2017 17:16 [facility] COMPARISON: No previous studies available for comparison. INDICATIONS : Trip and fall, laceration superior to left eye. RADIATION DOSE: 58.84 CTDIvol (mGy) MEDICAL HISTORY : Dementia. Cardiovascular disease SURGICAL HISTORY : None. ENCOUNTER: Initial ACUITY: 1 day PAIN SCORE: 4/10 LOCATION: Left facial TECHNIQUE: Volumetric scanning of the facial bones was performed. Using automated exposure control and adjustme nt of the mA and/or kV according to patient size, radiation dose was kept as low as reasonably achiev able to obtain optimal diagnostic quality images. DICOM format image data is available electronicall y for review and comparison. FINDINGS: No definite fractures, or dislocations are identified. No definite lytic or sclerotic lesion is seen . Artificial globe seen on the left. CONCLUSION: No definite fracture is seen for technique. Hill Caicedo MD on December 16, 2017 at 17:52 Board Certified Radiologist. This report was verified electronically.
--- NOTE | 2017-12-16 18:00 | RADRPT ---
EXAM DATE/TIME: 12/16/2017 17:16 [facility] COMPARISON: No previous studies available for comparison. INDICATIONS : Trip and fall, neck pain. RADIATION DOSE: 14.14 CTDIvol (mGy) MEDICAL HISTORY : Dementia. Cardiovascular disease SURGICAL HISTORY : None. ENCOUNTER: Initial ACUITY: 1 day PAIN SCALE: 4/10 LOCATION: Bilateral neck TECHNIQUE: Volumetric scanning of the cervical spine was performed. Multiplanar reconstructions in the sagittal, coronal and oblique axial planes were performed. Using automated exposure control and adjustment o f the mA and/or kV according to patient size, radiation dose was kept as low as reasonably achievable to obtain optimal diagnostic quality images. DICOM format image data is available electronically f or review and comparison. FINDINGS: No evidence of subluxation. No definite fracture is seen for technique. Step-like subluxation is seen at C4-5 C5-6 and C6-7 due to chronic degenerative change and facet arthrosis. C2-C3: There is no evidence for any significant compromise to the thecal sac, or the exiting nerve roots. N o appreciable thecal sac stenosis is seen. The neural foramina and lateral recess appear patent bila terally. C3-C4: There is no evidence for any significant compromise to the thecal sac, or the exiting nerve roots. N o appreciable thecal sac stenosis is seen. The neural foramina and lateral recess appear patent bila terally. C4-C5: There is no evidence for any significant compromise to the thecal sac, or the exiting nerve roots. N o appreciable thecal sac stenosis is seen. The neural foramina and lateral recess appear patent bila terally. C5-C6: Moderate degenerative changes are seen within the disc space and facets. Slight bulging disc and hype rtrophic changes are seen with indentation on the thecal sac and no significant compromise to the the enrique sac or the exiting nerve roots. C6-C7: Moderate degenerative changes are seen within the disc space and facets. Slight bulging disc and hype rtrophic changes are seen with indentation on the thecal sac and no significant compromise to the the enrique sac or the exiting nerve roots. C7-T1: There is no evidence for any significant compromise to the thecal sac, or the exiting nerve roots. N o appreciable thecal sac stenosis is seen. The neural foramina and lateral recess appear patent bila terally. CONCLUSION: Degenerative spondylosis without any significant compromise to the thecal sac or the exiting nerve roots. Hill Caicedo MD on December 16, 2017 at 17:54 Board Certified Radiologist. This report was verified electronically.
[2017-12-16 18:30] VITALS: BP 153/67; PULSE 71; RESP 18; O2SAT 99
--- NOTE | 2017-12-16 18:48 | PD ---
Physical Exam Narrative I, Dr. Saxena, have reviewed the advance practice practitioner's documentation and am in agreement, met with the patient face to face, made the diagnosis, and the medical decision making was done by me. *My assessment and Findings: Mechanical fall 67yo F with dementia here with forehead laceration s/p trip and fall in front of staff. Pt is at baseline mental status as per staff. CT cspine showed degenerative spondylosis without any significant compromise of thecal sac or the exiting nerve roots. CT brain showed lacunar infarct left thalamus not present previously without hemorrhage or mass effect. Pt has severe dementia and is AAOx1. She moves her upper extremities. Unable to get good history but do not think that admitting her would have any benefit. It was a witnessed trip and fall and pt is at her baseline mental status. She is pleasantly demented and laceration repaired. Will transfer pt back to [facility]. Data Data Last Documented VS Vital Signs Date Time Temp Pulse Resp B/P (MAP) Pulse Ox O2 Delivery O2 Flow Rate FiO2 12/16/17 21:36 12/16/17 18:30 71 18 99 Room Air 12/16/17 16:[address] Brain W/O Iv Contrast(Rout) (12/16/17 ) Ct Cerv Spine W/O Contrast (12/16/17 ) Ct Facial Bones W/O Iv Cont (12/16/17 ) Pelvis, Ap Only (Routine) (12/16/17 ) Lidocai-Epi 1%-1:100,000 Inj (Xylocaine- (12/16/17 16:15) Lidocai-Epi 1%-1:100,000 Inj (Xylocaine- (12/16/17 16:22) Lidocai-Epi 1%-1:100,000 Inj (Xylocaine- (12/16/17 17:00) Remove Cervical Collar (12/16/17 18:26) Ed Discharge Order (12/16/17 18:57) [facility] Supervised Visit with KRISS: Yes Diagnosis Primary Impression: Fall Qualified Codes: W19.XXXA - Unspecified fall, initial encounter Darlene Saxena DO Dec 16, 2017 18:48
== END 2017-12-16 21:36 | disposition home or self-care (01) ==
LOC: NEPE 15:50
DX: S01.81XA Laceration without foreign body of other part of head, initial encounter (principal); W01.0XXA Fall on same level from slipping, tripping and stumbling without subsequent striking against object, initial encounter; Y92.129 Unspecified place in nursing home as the place of occurrence of the external cause; R10.2 Pelvic and perineal pain; F31.9 Bipolar disorder, unspecified; F03.90 Unspecified dementia, unspecified severity, without behavioral disturbance, psychotic disturbance, mood disturbance, and anxiety; G47.00 Insomnia, unspecified
CPT/HCPCS: 12014; 70450; 70486; 72125; 72170

== ENCOUNTER 2018-03-23 16:03 | Emergency (ER) | payer MEDICARE ==
[~2018-03-23] VITALS: Ht 154.9 cm; Wt 72.0 kg
[2018-03-23 16:15] VITALS: BP 159/83; PULSE 60; RESP 16; TEMP 98.4; O2SAT 99
--- NOTE | 2018-03-23 16:22 | PD ---
HPI Chief Complaint: Fall Time Seen by Provider: 16:19 Travel History International Travel<30 days: No Contact w/Intl Traveler<30days: No Traveled to known affect area: No History of Present Illness HPI 68-year-old severely demented female who lives in local nursing facility, had mechanical trip and fall hitting the inner left forehead with laceration occurring to the left lateral brow. There was no obvious loss of consciousness. Patient is nonverbal, but does not appear in any acute distress. She was able to ambulate after her fall. Patient tends to pace at the nursing facility which led to her fall. She is up-to-date on her tetanus. She is allergic to opioids. PFSH Past Medical History Bipolar Disorder: Yes Dementia: Yes (WITH AGITATION ) Diminished Hearing: No Headaches: Yes Insomnia: Yes Psychiatric: Yes (CHRONIC PSYCHIATRIC ILLNESS , COGNITIVE IMPAIRMENT ) Immunizations Current: Yes ?: Not Menopausal: Yes : 4 Para: 4 Miscarriage: 0 : 0 Tubal Ligation: Yes Past Surgical History Appendectomy: Yes Section: Yes (x4) Cholecystectomy: Yes Eye Surgery: Yes (LEFT EYE PROSTHESIS) Gynecologic Surgery: Yes (C SECTION X4 PER MEDICAL RECORD, ) Hysterectomy: Yes Oral Surgery: Yes Other Surgery: Yes (SHOULDER DISLOCATION /INJURY ) Social History Alcohol Use: No Tobacco Use: No Substance Use: No Allergies-Medications (Allergen,Severity, Reaction): Coded Allergies: Opioids - Morphine Analogues (Verified Allergy, Unknown, 03/23/18) SENT FROM FACILITY LISTED ALLERGY Opioids-Meperidine and Related (Verified Allergy, Unknown, 03/23/18) SENT FROM FACILITY LISTED ALLERGY Opioids-Methadone and Related (Verified Allergy, Unknown, 03/23/18) SENT FROM FACILITY LISTED ALLERGY codeine (Verified Allergy, Unknown, 03/23/18) Per [facility]. Reported Meds & Prescriptions Reported Meds & Active Scripts Active Reported Diphenhydramine (Diphenhydramine HCl) 25 Mg Cap 50 Mg PO BID PRN Vitamin D-3 (Cholecalciferol) 2,000 Unit Tab 2,000 Units PO DAILY Vitamin B-12 (Cyanocobalamin) 1,000 Mcg Tab 1,000 Mcg PO DAILY Zyprexa (Olanzapine) 5 Mg Tab 5 Mg PO HS Donepezil 5 Mg Tab 5 Mg PO HS Maxitrol Opth Oint (Lilrjrzo-Xcvafxuto-Zwahcrptxogzw Opth Oint) 3.5 Gm Oint 1 Applic LEFT EYE QID Review of Systems ROS Limitations: Speech Impaired, Other: (Severe dementia) General / Constitutional: No: Fever Eyes: No: Visual changes HENT: No: Headaches Cardiovascular: No: Chest Pain or Discomfort Respiratory: No: Shortness of Breath Gastrointestinal: No: Abdominal Pain Genitourinary: No: Dysuria Musculoskeletal: No: Pain Skin: No Rash Neurologic: No: Weakness Psychiatric: No: Depression Endocrine: No: Polydipsia Hematologic/Lymphatic: No: Easy Bruising Physical Exam Exam Limitations: Other: (Severe dementia) Narrative GENERAL: Patient appears calm and cooperative. SKIN: Warm and dry. Normal color. Normal turgor. Patient has a jagged 2 cm laceration to the left lateral eyebrow. HEAD: Atraumatic. Normocephalic. Nontender. EYES: Pupils equal and round. No scleral icterus. No injection or drainage. ENT: No nasal bleeding or discharge. Mucous membranes pink and moist. No obvious dental injury. Pharynx is clear. Airways patent NECK: Trachea midline. No bony tenderness or step-off. Range of motion is full and supple. CARDIOVASCULAR: Regular rate and rhythm. RESPIRATORY: No accessory muscle use. Clear to auscultation. Breath sounds equal bilaterally. MUSCULOSKELETAL: Extremities without clubbing, cyanosis, or edema. No obvious deformities. NEUROLOGICAL: Awake and alert. No obvious cranial nerve deficits. Motor grossly within normal limits. Five out of 5 muscle strength in the arms and legs. Data Data Last Documented VS Vital Signs Date Time Temp Pulse Resp B/P (MAP) Pulse Ox O2 Delivery O2 Flow Rate FiO2 03/23/18 16:15 60 16 98 Room Air 03/23/18 16:15 98.4 159/83 (108) Orders Orders Ct Brain W/O Iv Contrast(Rout) (03/23/18 16:54) Ed Discharge Order (03/23/18 18:06) [facility] Medical Decision Making Medical Screen Exam Complete: Yes Emergency Medical Condition: Yes Medical Record Reviewed: Yes Differential Diagnosis Mechanical fall. Head contusion. Facial laceration. Possible internal cranial bleed. Narrative Course Patient has dementia but appears medically stable. Laceration is repaired, please see procedure note. CT of the head is performed. CT shows no acute process. Patient to keep the wound covered, and follow-up with her primary care physician at the nursing facility. Patient can take Tylenol for any complaints of pain. Antibiotics are not felt warranted. Patient is felt stable for discharge back to the nursing facility. Procedures Procedure Narrative LACERATION LOCATION: Left lateral brow LENGTH: 2 cm NUMBER OF STITCHES/JEMMA: 6 simple interrupted REPAIR: The area of the laceration was prepped with Betadine and sterilely draped. The laceration was infiltrated with 2.5 mL's 1% lidocaine with epi. The wound was copiously irrigated and explored without evidence of foreign body , tendon injury or neurovascular injury. The wound was closed using 4-0 Prolene. This was a single layer repair. A sterile dressing was applied. The patient was advised to keep the dressing clean and dry. Patient tolerated the procedure well. Diagnosis Primary Impression: Fall Qualified Codes: W19.XXXA - Unspecified fall, initial encounter Additional Impressions: Facial laceration Qualified Codes: S01.81XA - Laceration without foreign body of other part of head, initial encounter Contusion of face Qualified Codes: S00.83XA - Contusion of other part of head, initial encounter Referrals: Primary Care Physician Patient Instructions: Facial Laceration (ED), General Instructions Additional Instructions: Laceration is repaired, please see procedure note. CT of the head is performed. CT shows no acute process. Patient to keep the wound covered, and follow-up with her primary care physician at the nursing facility. Patient can take Tylenol for any complaints of pain. Antibiotics are not felt warranted. Patient is felt stable for discharge back to the nursing facility. Med/Other Pt SpecificInfo: Prescription(s) given Disposition: 03 DISCHARGE TO SNF Condition: Stable Asael Jerome March 23, 2018 16:22
--- NOTE | 2018-03-23 16:28 | PD ---
Physical Exam Date Seen by Provider: March 23, 2018 Narrative This is a patient with dementia who reportedly fell at her halfway suffering a laceration to her left forehead. Data Data Last Documented VS Vital Signs Date Time Temp Pulse Resp B/P (MAP) Pulse Ox O2 Delivery O2 Flow Rate FiO2 03/23/18 16:15 98.4 60 16 159/83 (108) 99 MDM Supervised Visit with KRISS: Yes Narrative Course I, Dr. Bowers, have reviewed the advance practice practitioner's documentation and am in agreement, met with the patient face to face, made the diagnosis, and the medical decision making was done by me. *My assessment and Findings: Large, V-shaped laceration on the left side of the forehead. When I went into see the patient, she was licking her bedside control. Please see Juan Jerome PA-C's note for results of laboratory and radiographic evaluation, ED course, final diagnosis and disposition Hilda Bowers MD March 23, 2018 16:28
--- NOTE | 2018-03-23 17:47 | RADRPT ---
EXAM DATE/TIME: 03/23/2018 17:28 [place] COMPARISON: No previous studies available for comparison. INDICATIONS : Trauma; fall. RADIATION DOSE: 56.35 CTDIvol (mGy) MEDICAL HISTORY : Dementia. Cardiovascular disease Carcinoma, not otherwise specified.Left eye blindness SURGICAL HISTORY : Appendectomy. Cholecystectomy.eye prosthetic ENCOUNTER: Initial ACUITY: 1 day PAIN SCALE: 5/10 LOCATION: cranial TECHNIQUE: Multiple contiguous axial images were obtained of the head. Using automated exposure control and adj ustment of the mA and/or kV according to patient size, radiation dose was kept as low as reasonably a chievable to obtain optimal diagnostic quality images. DICOM format image data is available electro nically for review and comparison. FINDINGS: There is remote lacunar infarct left thalamus. There is no cranial mass, hemorrhage or midline shift. No hydrocephalus. No abnormal extra-axial fluid collections are present. No acute bony abnormalities . Left globe prosthesis. CONCLUSION: 1. No acute findings. Remote lacunar infarct in left thalamus. Merrill Canela MD on March 23, 2018 at 17:43 Board Certified Radiologist. This report was verified electronically.
== END 2018-03-23 20:30 ==
LOC: NEPD 16:03
DX: S01.112A Laceration without foreign body of left eyelid and periocular area, initial encounter (principal); W01.0XXA Fall on same level from slipping, tripping and stumbling without subsequent striking against object, initial encounter; Y92.129 Unspecified place in nursing home as the place of occurrence of the external cause
CPT/HCPCS: 12011; 70450

== ENCOUNTER 2018-11-08 21:30 | Observation (INO) ==
--- NOTE | 2018-11-08 22:02 | ED ---
HPI General Chief complaint: Weakness Stated complaint: General Medical Time Seen by Provider: 11/08/18 21:48 Source: EMS Mode of arrival: EMS Limitations: altered mental status (Severe dementia at baseline with infrequent speaking.) History of Present Illness HPI narrative: The patient is a 68 year old female who presents to the [facility] emergency department with a history of change in her usual activity level noted at the intermediate since yesterday. The patient has a history of severe dementia with infrequent speaking at her baseline. The patient does however usually get up and walk frequently at the intermediate. Yesterday she was walking less than usual and today she was not walking at all. They also noticed that she had decreased urine output throughout the day as they do have to change her diapers. There was no information regarding whether the patient has also had decreased p.o. intake. The patient on arrival will maintain eye contact when spoken to, however she is nonverbal. The patient attempts to cooperate with some of the tasks that are asked of her, however not all of them. No other history is able to be obtained from the patient. The patient's electronic medical record will be reviewed. Related Data Home Medications Medication Instructions Recorded Confirmed donepezil [Aricept] 5 mg PO HS 07/11/18 11/08/18 lorazepam 0.5 mg PO TID 07/11/18 11/08/18 diphenhydramine HCl [Benadryl] 50 mg PO BID 11/08/18 11/08/18 neomycin-polymyxin B-dexameth 1 drp OPHTHALMIC (EYE) Q12H 11/08/18 11/08/18 [Maxitrol] olanzapine [Zyprexa] 5 mg PO HS 11/08/18 11/08/18 Allergies Allergy/AdvReac Type Severity Reaction Status Date / Time codeine Allergy Unknown Verified 03/23/18 16:28 Opioids - Morphine Analogues Allergy Unknown Verified 03/23/18 16:28 Opioids-Meperidine and Allergy Unknown Verified 03/23/18 16:28 Related Opioids-Methadone and Related Allergy Unknown Verified 03/23/18 16:28 Review of Systems ROS Unobtainable ROS Unobtainable: unobtainable due to mental status PMFSH History History Provided By: Medical Record and Underground Supervisor / EMT Medical History Medical History Dementia (Acute) Surgical History Surgical History H/O enucleation of left eyeball (Acute) H/O shoulder surgery (Acute) H/O: section (Acute) Social History Social History Substance History: Unable to Obtain Second Hand Smoke Exposure: No Smoking Status: Cognitive impairment Tobacco Type: Cigarettes How Often Do You Have a Drink Containing Alcohol: Unable to Obtain Recent Travel in [facility] within the Last 8 Weeks: No Recent Out of Country Travel within the Last 8 Weeks: No Exam Const General: cooperative and no acute distress Nutritional Appearance: well nourished Orientation: alert, awake, not oriented to person, not oriented to place and not oriented to time HENMT Head: normocephalic and atraumatic Nose: no nasal discharge and no epistaxis Mouth: moist mucous membranes Throat: posterior oropharynx normal and uvula midline Eyes Sclera: normal sclerae Pupils: other (The patient has a prosthetic eye in place on the left. Pupil is reactive to light on the right.) Neck Neck: trachea midline and no JVD Resp Effort & Inspection: no use of accessory muscles Auscultation: clear to auscultation bilaterally Cardio Rate: regular rate Rhythm: regular rhythm Heart Sounds: no murmurs GI Inspection: non-distended Palpation: soft, no hepatosplenomegaly, no guarding, not rigid and nontender Auscultation: normal bowel sounds Back/Spine/Pelvis Back: no CVA tenderness Cervical Spine: No cervical spinal tenderness Thoracic/Lumbar Spine: No thoracic spinal tenderness and No lumbar spinal tenderness Skin General: dry skin (warm) Neuro General: alert, awake and other (The patient is uncooperative with formal neurologic testing, however no evidence of facial asymmetry is noted. When spoken to she does make eye contact. She is nonverbal at baseline.) Motor: no movement abnormalities noted Extrem General: normal to inspection (2+ pulses in all 4 extremities.), no calf tenderness, no clubbing, no cyanosis and no edema Right upper extremity: normal to inspection and full ROM Left upper extremity: normal to inspection and full ROM Right lower extremity: normal to inspection and full ROM Left lower extremity: normal to inspection and full ROM Course Initial Documented Vital Signs Pulse Rate 78 11/08/18 21:42 Blood Pressure 134/72 11/08/18 21:42 Pulse Oximetry 98 11/08/18 21:42 Last Documented Vital Signs Pulse Rate 63 11/08/18 23:44 Respiratory Rate 16 11/08/18 23:44 Blood Pressure 143/61 H 11/08/18 23:44 Pulse Oximetry 97 11/08/18 23:44 Medical Decision Making MDM Narrative Medical decision making narrative: During the course of the patient's emergency department visit, the patient's history, examination, and differential diagnosis were reviewed with the patient. The patient was placed on a wired sweatband cutter with oximetry and frequent blood pressure monitoring. The patient had IV access obtained and blood work sent for analysis. A diagnostic evaluation is started regarding the patient's change in activity level at the intermediate with decreased urine output. The patient was initially provided normal saline at 500 mL bolus x1. The patient's diagnostic testing is remarkable for a white count of 8, hemoglobin 12.5, platelets 261 with 13.1 monocytes, PT PTT within normal limits , chemistries remarkable for sodium of 148, chloride 112 consistent with dehydration with a BUN of 49, creatinine of 1.07 which is increased from her baseline, GFR 51 magnesium 2.6, AST 40, cardiac enzymes are within normal limits. Urinalysis shows signs of infection, catheterized urine shows a protein of 100, trace ketones small leukocyte esterase 17 RBCs, 163 WBCs, many white blood cell clumps, many bacteria. The patient was given Rocephin 1 g IV. A call was placed out to the floor healthcare hospitalist. I spoke to Dr. Winston who did accept the patient for admission. He requested that the patient be admitted to Dr. Goins's service. The patient's results were discussed with the patient, including the plan of care. I explained that further testing and/ or monitoring is indicated based on the patient's history, examination, and/ or laboratory findings. Therefore, I recommended admission for additional evaluation. The patient expressed understanding and was agreeable with this plan. The patient was admitted to the hospital in stable condition and sent to a bed under the care of [facility] hospital[facility]. Medical Screen Exam Complete: Yes Emergency Medical Condition: Yes Differential Diagnosis Differential Diagnosis: Dehydration, versus electrolyte derangements, versus urinary tract infection, versus intracranial abnormality, versus encephalopathy , versus pneumonia Medical Records Medical records reviewed: Yes I reviewed the patient's medical records. Lab Data Lab results reviewed: Yes I reviewed the patient's lab results. Result diagrams: 11/08/18 22:00 11/08/18 22:00 Lab Results 11/08/18 11/08/18 11/08/18 Range/Units 22:00 22:00 22:00 WBC 8.0 (4.0-11.0) th/mm3 RBC 3.94 L (4.00-5.30) mil/mm3 Hgb 12.5 (11.6-15.3) gm/dL Hct 36.6 (35.0-46.0) % MCV 93.1 (80.0-100.0) fL MCH 31.7 (27.0-34.0) pg MCHC 34.1 (32.0-36.0) % RDW 12.4 (11.6-17.2) % Plt Count 261 (150-450) th/mm3 MPV 8.2 (7.0-11.0) fL Neut % (Auto) 54.6 (16.0-70.0) % Lymph % (Auto) 30.6 (9.0-44.0) % [place] % (Auto) 13.1 H (0.0-8.0) % Eos % (Auto) 1.4 (0.0-4.0) % Baso % (Auto) 0.3 (0.0-2.0) % Neut # (Auto) 4.4 (1.8-7.7) th/mm3 Lymph # (Auto) 2.5 (1.0-4.8) th/mm3 [place]kins # (Auto) 1.1 H (0.0-0.9) th/mm3 Eos # (Auto) 0.1 (0.0-0.4) th/mm3 Baso # (Auto) 0.0 (0.0-0.2) th/mm3 WBC Differential . Differential Comment Auto diff final PT 10.0 (9.8-11.6) sec INR 1.0 Ratio APTT 24.2 (23.4-31.7) sec Sodium 148 H (136-145) meq/L Potassium 3.6 (3.5-5.1) meq/L Chloride 112 H (98-107) meq/L Carbon Dioxide 28.6 (21.0-32.0) meq/L Anion Gap 7 (5-15) meq/L BUN 49 H (7-18) mg/dL Creatinine 1.07 H (0.50-1.00) mg/dL Estimated GFR 51 L (>89) mL/min Random Glucose 101 (74-106) mg/dL Calcium 9.2 (8.5-10.1) mg/dL Magnesium 2.6 H (1.5-2.5) mg/dL Total Bilirubin 0.5 (0.2-1.0) mg/dL AST 40 H (15-37) U/L ALT 34 (10-53) U/L Alkaline Phosphatase 104 (45-117) U/L Total Creatine Kinase 102 (26-192) U/L CK-MB (CK-2) Less than 1.0 (0.5-3.6) ng/mL Troponin I Less than 0.02 L (0.02-0.05) ng/mL Total Protein 7.8 (6.4-8.2) g/dL Albumin 3.7 (3.4-5.0) g/dL Urine Color (Yellw/Straw) Urine Clarity (Clear) Urine pH (5.0-8.5) Ur Specific [place] (1.002-1.035) Urine Protein (Neg-Trace) mg/dL Urine Glucose (UA) (Negative) mg/dL Urine Ketones (Negative) mg/dL Urine Occult Blood (Negative) Urine Nitrate (Negative) Urine Bilirubin (Negative) Urine Urobilinogen (Less than 2) mg/dL Ur Leukocyte Esterase (Negative) Urine RBC (0-3) /hpf Urine WBC (0-5) /hpf Urine WBC Clumps (None) Ur Squamous Epith Cells (0-5) /hpf Urine Bacteria (None) /hpf Urine Mucus (Occasional) /lpf Micro UA Comment Ur Microscopic Review Urine Culture Comments 11/08/18 Range/Units 22:55 WBC (4.0-11.0) th/mm3 RBC (4.00-5.30) mil/mm3 Hgb (11.6-15.3) gm/dL Hct (35.0-46.0) % MCV (80.0-100.0) fL MCH (27.0-34.0) pg MCHC (32.0-36.0) % RDW (11.6-17.2) % Plt Count (150-450) th/mm3 MPV (7.0-11.0) fL Neut % (Auto) (16.0-70.0) % Lymph % (Auto) (9.0-44.0) % [place] % (Auto) (0.0-8.0) % Eos % (Auto) (0.0-4.0) % Baso % (Auto) (0.0-2.0) % Neut # (Auto) (1.8-7.7) th/mm3 Lymph # (Auto) (1.0-4.8) th/mm3 [place] # (Auto) (0.0-0.9) th/mm3 Eos # (Auto) (0.0-0.4) th/mm3 Baso # (Auto) (0.0-0.2) th/mm3 WBC Differential Differential Comment PT (9.8-11.6) sec INR Ratio APTT (23.4-31.7) sec Sodium (136-145) meq/L Potassium (3.5-5.1) meq/L Chloride (98-107) meq/L Carbon Dioxide (21.0-32.0) meq/L Anion Gap (5-15) meq/L BUN (7-18) mg/dL Creatinine (0.50-1.00) mg/dL Estimated GFR (>89) mL/min Random Glucose (74-106) mg/dL Calcium (8.5-10.1) mg/dL Magnesium (1.5-2.5) mg/dL Total Bilirubin (0.2-1.0) mg/dL AST (15-37) U/L ALT (10-53) U/L Alkaline Phosphatase (45-117) U/L Total Creatine Kinase (26-192) U/L CK-MB (CK-2) (0.5-3.6) ng/mL Troponin I (0.02-0.05) ng/mL Total Protein (6.4-8.2) g/dL Albumin (3.4-5.0) g/dL Urine Color Yellow (Yellw/Straw) Urine Clarity Turbid H (Clear) Urine pH 6.0 (5.0-8.5) Ur Specific [place] 1.024 (1.002-1.035) Urine Protein 100 H (Neg-Trace) mg/dL Urine Glucose (UA) 50 (Negative) mg/dL Urine Ketones Trace H (Negative) mg/dL Urine Occult Blood Negative (Negative) Urine Nitrate Negative (Negative) Urine Bilirubin Negative (Negative) Urine Urobilinogen 0.2 (Less than 2) mg/dL Ur Leukocyte Esterase Small H (Negative) Urine RBC 7 H (0-3) /hpf Urine WBC 163 H (0-5) /hpf Urine WBC Clumps Many H (None) Ur Squamous Epith Cells 88 (0-5) /hpf Urine Bacteria Many H (None) /hpf Urine Mucus Many H (Occasional) /lpf Micro UA Comment Cath-culture ind Ur Microscopic Review Not Reportable Urine Culture Comments Cath-cult indicated Imaging Data Radiologist's impression: Cervical Spine CT 11/08/18 21:49 CONCLUSION: 1. No acute fracture. 2. Stable grade 1 anterolisthesis of C4 on C5, C5 on C6 and C6 on C7 presumably due to degenerative facet arthrosis. 3. Degenerative spondylosis of the lower cervical spine most notably at C5-6 and C6-7. Head CT 11/08/18 21:49 CONCLUSION: 1. Persistent moderate diffuse cerebral atrophy, slightly out of proportion for age. 2. Moderate periventricular ischemic white matter demyelination and remote left thalamic lacunar infarct. 3. No acute intracranial abnormality. . Pelvis X-Ray 11/08/18 21:49 CONCLUSION: 1. Limited evaluation of the left femoral neck. Consider dedicated left hip views if there is continued clinical concern regarding the left hip. 2. Otherwise, no acute fracture. Chest X-Ray 11/08/18 21:51 CONCLUSION: 1. No acute cardiopulmonary disease. 2. Chronic right shoulder dislocation. ECG Data Attestation: I personally reviewed and interpreted this ECG as follows: Interpretation: The patient had an EKG done on arrival. The patient's EKG reveals a sinus rhythm heart rate of 70, QRS duration is 81 ms, QTC [address] segment elevation. T waves are inverted in V1. Discharge Plan Discharge Disposition Patient Disposition: ED Admit(ED Internal Use Only) Discharge Order Discharge Orders: ED Use Only Admit Order (Routine); Ordered 11/08/18 Ordered By: Tatiana Rock Discharge Details Diagnosis: Acute dehydration, Acute UTI Physicians Team ED Provider: Tatiana Rock Primary Care Provider: UNKNOWN, Attending Provider: Carlitos Goins Discharge Interventions Interventions: Vital Signs Last Done: 11/08/18 23:44 Status ED Status: Admitted Observation Patient
[2018-11-08] MEDS ORDERED: Sodium Chlor 0.9% Inj 500 ML IV.SIG ONE ×2 (22:03→23:42)
--- NOTE | 2018-11-08 22:12 | XR ---
EXAM DATE: 11/08/2018 10:08 PM EST AGE/SEX: 68 years / Female INDICATIONS: General weakness. CLINICAL DATA: This is the patient's initial encounter. Patient reports that signs and symptoms have been present for 1 day and indicates a pain score of Nonresponsive. MEDICAL/SURGICAL HISTORY: Non-responsive. Non-responsive. COMPARISON: [facility], PET/CT WHOLE BODY, 10/06/2015. . FINDINGS: A single AP view of the chest demonstrates the lungs to be symmetrically aerated without evidence of mass, infiltrate or effusion. The cardiomediastinal contours are unremarkable. Chronic dislocation o f the right shoulder. CONCLUSION: 1. No acute cardiopulmonary disease. 2. Chronic right shoulder dislocation. Electronically signed by: Kobi Jerry MD Board Certified Radiologist 11/08/2018 10:10 PM E
--- NOTE | 2018-11-08 22:13 | CT ---
EXAM DATE: 11/08/2018 10:10 PM EST AGE/SEX: 68 years / Female INDICATIONS: Altered mental status. Fall. CLINICAL DATA: This is the patient's initial encounter. Patient reports that signs and symptoms have been present for 1 day and indicates a pain score of 0/10. MEDICAL/SURGICAL HISTORY: Non-responsive. Non-responsive. RADIATION DOSE: 56.35 CTDI (mGy) [place] [facility] [place]. . TECHNIQUE: CT of the head without contrast. Using automated exposure control and adjustment of the mA and/or kV according to patient size, radiation dose was kept as low as reasonably achievable to ob tain optimal diagnostic quality images. DICOM format image data is available electronically for revi ew and comparison. FINDINGS: Cerebrum: Moderate diffuse cerebral atrophy. The ventricles are normal for degree of atrophy. Small left thalamic lacunar infarct. Moderate periventricular white matter hypodensities. No evidence of mi dline shift, mass lesion, hemorrhage or acute infarction. No extraaxial fluid collections are seen. Posterior Fossa: The cerebellum and brainstem are intact. The 4th ventricle is midline. The cerebe llopontine angle is unremarkable. Extracranial: The visualized portion of the orbits is intact. There is a prosthetic left globe. Skull: The calvaria is intact. No evidence of skull fracture. CONCLUSION: 1. Persistent moderate diffuse cerebral atrophy, slightly out of proportion for age. 2. Moderate periventricular ischemic white matter demyelination and remote left thalamic lacunar inf arct. 3. No acute intracranial abnormality. . Electronically signed by: Kobi Jerry MD Board Certified Radiologist 11/08/2018 10:12 PM E
--- NOTE | 2018-11-08 22:16 | XR ---
EXAM DATE: 11/08/2018 10:09 PM EST AGE/SEX: 68 years / Female INDICATIONS: General weakness, cannot bare weight. CLINICAL DATA: This is the patient's initial encounter. Patient reports that signs and symptoms have been present for 1 day and indicates a pain score of Nonresponsive. MEDICAL/SURGICAL HISTORY: Non-responsive. Non-responsive. COMPARISON: [facility] – [place], PELVIS AP ONLY, 12/16/2017. . FINDINGS: Left hip rotation limits evaluation of the left femoral neck. Otherwise, osseous structures are intac t. Bony mineralization is normal. There is no widening of the sacroiliac joints. No foreign body is identified. CONCLUSION: 1. Limited evaluation of the left femoral neck. Consider dedicated left hip views if there is contin ued clinical concern regarding the left hip. 2. Otherwise, no acute fracture. Electronically signed by: Kobi Jerry MD Board Certified Radiologist 11/08/2018 10:15 PM E
[2018-11-08 22:22] LABS: Baso % (Auto) 0.3 % (0.0-2.0); Eos # (Auto) 0.1 th/mm3 (0.0-0.4); Eos % (Auto) 1.4 % (0.0-4.0); Hematocrit 36.6 % (35.0-46.0); Hemoglobin 12.5 gm/dL (11.6-15.3); Lymph # (Auto) 2.5 th/mm3 (1.0-4.8); Lymph % (Auto) 30.6 % (9.0-44.0); Mean Corpuscular HGB Conc 34.1 % (32.0-36.0); Mean Corpuscular Hemoglobin 31.7 pg (27.0-34.0); Mean Corpuscular Volume 93.1 fL (80.0-100.0); Mean Platelet Volume 8.2 fL (7.0-11.0); Mono # (Auto) 1.1 th/mm3 (0.0-0.9); Mono % (Auto) 13.1 % (0.0-8.0); Neut # (Auto) 4.4 th/mm3 (1.8-7.7); Neut % (Auto) 54.6 % (16.0-70.0); Platelet Count 261 th/mm3 (150-450); Red Blood Count 3.94 mil/mm3 (4.00-5.30); Red Cell Distribution Width 12.4 % (11.6-17.2)
--- NOTE | 2018-11-08 22:22 | CT ---
EXAM DATE: 11/08/2018 10:18 PM EST AGE/SEX: 68 years / Female INDICATIONS: Fall. CLINICAL DATA: This is the patient's initial encounter. Patient reports that signs and symptoms have been present for 1 day and indicates a pain score of Nonresponsive. MEDICAL/SURGICAL HISTORY: Non-responsive. Non-responsive. RADIATION DOSE: 10.22 CTDI (mGy) COMPARISON: [facility] – [place] CERVICAL SPINE W/O CONTRAST, 07/11/2018. . TECHNIQUE: Contiguous axial images were obtained using helical multirow detector technique. The vol umetric data was post-processed with multiplanar reconstruction in oblique axial, sagittal, and coron al planes. Using automated exposure control and adjustment of the mA and/or kV according to patient s ize, radiation dose was kept as low as reasonably achievable to obtain optimal diagnostic quality xochitl ges. DICOM format image data is available electronically for review and comparison. FINDINGS: OSSEOUS STRUCTURES: Vertebral body heights are maintained. Osseous structures are intact without evid ence for acute bony fracture. Dens is intact. ALIGNMENT: Stable grade 1 anterolisthesis of C4 on C5 and C5 on C6 and C6 on C7. There is a normal C1 -2 relationship. Facets are normally aligned. SOFT TISSUES: There is no significant prevertebral soft tissue hematoma. No significant cervical phi nopathy or gross mass. The thyroid appears unremarkable. Visualized lung apices are clear without pn eumothorax. ADDITIONAL FINDINGS: Prominent multilevel facet hypertrophy. Degenerative spondylosis of the lower ce rvical spine most notably at C5-6 and C6-7 with disc space narrowing and anterior osteophytes. Bony c entral canal is patent. Bony neural foramina are patent. CONCLUSION: 1. No acute fracture. 2. Stable grade 1 anterolisthesis of C4 on C5, C5 on C6 and C6 on C7 presumably due to degenerative facet arthrosis. 3. Degenerative spondylosis of the lower cervical spine most notably at C5-6 and C6-7. Electronically signed by: Kobi Jerry MD Board Certified Radiologist 11/08/2018 10:21 PM Nasir JULIEN
[2018-11-08 22:35] LABS: Albumin 3.7 g/dL (3.4-5.0); Anion Gap 7 meq/L (5-15); Aspartate Aminotransferase 40 U/L (15-37); Blood Urea Nitrogen 49 mg/dL (7-18); Calcium 9.2 mg/dL (8.5-10.1); Carbon Dioxide 28.6 meq/L (21.0-32.0); Chloride 112 meq/L (98-107); Glomerular Filtration Rate 51 mL/min (>89); Glucose,Random 101 mg/dL (74-106); Magnesium 2.6 mg/dL (1.5-2.5); Potassium 3.6 meq/L (3.5-5.1); Sodium 148 meq/L (136-145)
[2018-11-08 22:36] LABS: Alanine Aminotransferase 34 U/L (10-53)
[2018-11-08 22:40] LABS: Alkaline Phosphatase 104 U/L (45-117); Creatine Kinase 102 U/L (26-192); Total Protein 7.8 g/dL (6.4-8.2)
[2018-11-08 22:54] LABS: Activated Partial Thrombo Time 24.2 sec (23.4-31.7)
[2018-11-08 23:41] LABS: Bacteria,Urine Many /hpf; Bilirubin,Urine Negative (Negative); Clarity,Urine Turbid (Clear); Color,Urine Yellow (Yellw/Straw); Glucose,Urine (UA) 50 mg/dL (Negative); Leukocyte Esterase,Urine Small (Negative); Mucus,Urine Many /lpf (Occasional); Nitrite,Urine Negative (Negative); Specific Gravity,Urine 1.024 (1.002-1.035); Squamous Epithelial Cell,Urine 88 /hpf (0-5)
[2018-11-08 23:42] LABS: Urobilinogen,Urine 0.2 mg/dL (Less than 2)
[2018-11-09 07:43] LABS: Anion Gap 6 meq/L (5-15); Blood Urea Nitrogen 41 mg/dL (7-18); Carbon Dioxide 27.1 meq/L (21.0-32.0); Chloride 117 meq/L (98-107); Glomerular Filtration Rate Greater Than 89 mL/min (>89); Glucose,Random 99 mg/dL (74-106); Potassium 3.5 meq/L (3.5-5.1); Sodium 150 meq/L (136-145)
--- NOTE | 2018-11-09 08:02 | P.HPIM ---
History of Present Illness Primary Care Physician: Dr. Tamar Fox History of Present Illness: Ms. Holm is a 68 y/o female with end stage Alzheimer's dementia who presented to the ED at [facility] [place] from a local longterm where she resides on 11/08/18 for a change in her usual activity level since . The patient has a history of severe dementia with infrequent speaking at her baseline. The history was obtained from the ED records and review of outpt records. According to the ED records, the patient does usually get up and walk frequently at the longterm. The day prior to her ER visit she was noted to be walking less than usual and yesterday she was not walking at all. They also noticed that she had decreased urine output throughout the day as they do have to change her diapers. There was no information regarding whether the patient has also had decreased p.o. intake. The patient on arrival will maintain eye contact when spoken to, however she is nonverbal. Her labs in the ED noted some signs of dehydration with elevated BUN 49 and Cr 1.07 which are higher than her baseline Cr which is around 0.5-0.7. Her UA was also abnormal and urine culture is pending. Pt was given IVF and a dose of Rocephin in the ED last night. 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 Vitamin D deficiency Past Surgical Hx: (Per outpt records) Appendectomy Cataract surgery Cholecystectomy Hysterectomy Family Hx: Unobtainable Social Hx: Unobtainable Pt resides at a local longterm Diagnosis (1) Acute UTI: (2) Acute dehydration: (3) Dementia in Alzheimer's disease: Medications and Allergies Allergies Allergy/AdvReac Type Severity Reaction Status Date / Time codeine Allergy Unknown Verified 03/23/18 16:28 Opioids - Morphine Analogues Allergy Unknown Verified 03/23/18 16:28 Opioids-Meperidine and Allergy Unknown Verified 03/23/18 16:28 Related Opioids-Methadone and Related Allergy Unknown Verified 03/23/18 16:28 Home Medications Medication Instructions Recorded Confirmed Type donepezil [Aricept] 5 mg PO HS 07/11/18 11/08/18 History lorazepam 0.5 mg PO TID 07/11/18 11/08/18 History diphenhydramine HCl [Benadryl] 50 mg PO BID 11/08/18 11/08/18 History neomycin-polymyxin B-dexameth 1 drp OPHTHALMIC (EYE) Q12H 11/08/18 11/08/18 History [Maxitrol] olanzapine [Zyprexa] 5 mg PO HS 11/08/18 11/08/18 History mirtazapine 15 mg PO HS 11/09/18 11/09/18 History Active Medications: Active Medications Diphenhydramine HCl (Benadryl) 50 mg PO BID EFREN Donepezil HCl (Aricept) 5 mg PO HS EFREN Ceftriaxone Sodium 1,000 mg/ (Sodium Chloride) 100 mls @ 200 mls/hr IV.SIG Q24H EFREN Potassium Chloride/Sodium Chloride (Ns + Kcl 20 Meq Inj) 1,000 mls @ 84 mls/hr IV.CONT .[id number] EFREN Stop: 11/09/18 11:54 Last Admin: 11/09/18 01:22 Dose: 84 mls/hr Lorazepam (Ativan) 0.5 mg PO TID EFREN Olanzapine (Zyprexa) 5 mg PO HS EFREN Sodium Chloride (Ns Flush) 2 ml IV.FLUSH UNSCH PRN PRN Reason: FLUSH AFTER USING IV ACCESS Physical Exam Vital signs: Last Vital Signs Temp 98.4 F 11/09/18 03:45 Pulse 50 L 11/09/18 03:45 Resp 16 11/09/18 03:45 BP 125/60 11/09/18 03:45 Pulse Ox 98 11/09/18 03:45 Narrative: GENERAL: NAD, Awake, alert, nonverbal SKIN: Warm and dry. HEENT: Atraumatic. Normocephalic. Pupils equal and round. No scleral icterus. No injection or drainage. No nasal bleeding or discharge. Mucous membranes pink and moist. NECK: Trachea midline. No JVD. CARDIO: Regular RESP: No accessory muscle use. Clear to auscultation. Breath sounds equal bilaterally. ABD: +BS, soft, non-tender, nondistended EXT: Extremities without edema. No obvious deformities. NEURO: Awake and alert. Pt does not follow commands, difficult to assess. HOLM. Nonverbal Results Labs CBC & Chem 7: 11/08/18 22:00 11/09/18 06:[address] 11/08/18 21:49 CONCLUSION: 1. No acute fracture. 2. Stable grade 1 anterolisthesis of C4 on C5, C5 on C6 and C6 on C7 presumably due to degenerative facet arthrosis. 3. Degenerative spondylosis of the lower cervical spine most notably at C5-6 and C6-7. Head CT 11/08/18 21:49 CONCLUSION: 1. Persistent moderate diffuse cerebral atrophy, slightly out of proportion for age. 2. Moderate periventricular ischemic white matter demyelination and remote left thalamic lacunar infarct. 3. No acute intracranial abnormality. Pelvis X-Ray 11/08/18 21:49 CONCLUSION: 1. Limited evaluation of the left femoral neck. Consider dedicated left hip views if there is continued clinical concern regarding the left hip. 2. Otherwise, no acute fracture. Chest X-Ray 11/08/18 21:51 CONCLUSION: 1. No acute cardiopulmonary disease. 2. Chronic right shoulder dislocation. Caprini VTE Risk Assessment Caprini VTE Risk Assessment: Moderate/High Risk (score >= 2) Caprini Risk Assessment Model: Point Value = 1 Point Value = 2 Point Value = 3 Point Value = 5 Age 41-60 Minor surgery BMI > 25 kg/m2 Swollen legs Varicose veins or History of unexplained or recurrent spontaneous Oral contraceptives or hormone replacement Sepsis (< 1 month) Serious lung disease, including pneumonia (< 1 month) Abnormal pulmonary function Acute myocardial infarction Congestive heart failure (< 1 month) History of inflammatory bowel disease Medical patient at bed rest Age 61-74 Arthroscopic surgery Major open surgery (> 45 min) Laparoscopic surgery (> 45 min) Malignancy Confined to bed (> 72 hours) Immobilizing plaster cast Central venous access Age >= 75 History of VTE Family history of VTE Factor V Leiden Prothrombin [id number] Lupus anticoagulant Anticardiolipin antibodies Elevated serum homocysteine Heparin-induced thrombocytopenia Other congenital or acquired thrombophilia Stroke (< 1 month) Elective arthroplasty Hip, pelvis, or leg fracture Acute spinal cord injury (< 1 month) Prophylaxis Regimen: Total Risk Factor Score Risk Level Prophylaxis Regimen 0-1 Low Early ambulation 2 Moderate Order ONE of the following: *Sequential Compression Device (SCD) *Heparin 5000 units SQ BID 3-4 Higher Order ONE of the following medications: *Heparin 5000 units SQ TID *Enoxaparin/Lovenox 40 mg SQ daily (WT < 150 kg, CrCl > 30 mL/min) *Enoxaparin/Lovenox 30 mg SQ daily (WT < 150 kg, CrCl > 10-29 mL/min) *Enoxaparin/Lovenox 30 mg SQ BID (WT < 150 kg, CrCl > 30 mL/min) AND/OR *Sequential Compression Device (SCD) 5 or more Highest Order ONE of the following medications: *Heparin 5000 units SQ TID (Preferred with Epidurals) *Enoxaparin/Lovenox 40 mg SQ daily (WT < 150 kg, CrCl > 30 mL/min) *Enoxaparin/Lovenox 30 mg SQ daily (WT < 150 kg, CrCl > 10-29 mL/min) *Enoxaparin/Lovenox 30 mg SQ BID (WT < 150 kg, CrCl > 30 mL/min) AND *Sequential Compression Device (SCD) Assessment and Plan Assessment (1) Acute UTI: Code(s): N39.0 - Urinary tract infection, site not specified Status: Acute (2) Acute dehydration: Code(s): E86.0 - Dehydration Status: Acute (3) Dementia in Alzheimer's disease: Code(s): G30.9 - Alzheimer's disease, unspecified; F02.80 - Dementia in other diseases classified elsewhere without behavioral disturbance Status: Chronic Plan NATALIA/Dehydration UTI Alzheimer's dementia - Pt is a 68 y/o female with end stage Alzheimer's dementia who presented to the ED at [facility] [place] from a local longterm where she resides on 11/08/18 for a change in her usual activity level since 11/07/18. The patient has a history of severe dementia and is basically nonverbal at her baseline. The day prior to her ER visit she was noted to be walking less than usual and yesterday she was not walking at all. They also noticed that she had decreased urine output. - Her labs in the ED noted some signs of dehydration with elevated BUN 49 and Cr 1.07 which are higher than her baseline Cr which is around 0.5-0.7. - Her UA was also abnormal and urine culture is pending. - Pt was given IVF and a dose of Rocephin in the ED last night. - Cont. IVF - Repeat labs this morning with improvement in her renal function back to baseline - Encourage oral intake - PT evaluation - Await urine culture results - Rocephin continued - Supportive care - Anticipate d/c back to longterm once urine culture results and once PT evaluates - DVT prophylaxis with SCDs Attending Attestation Patient examined. Assessment and plan formulated with Latonya Parikh PA-C. I agree with the above. dementia. uti. hypernatremia. PT eval. d5w. f/u urine cx. cont abx. connie vs snf. H&P: Quality VTE Deep Vein Thrombosis/Pulmonary Embolism Present on Admission: No
[2018-11-09] MEDS ORDERED: LORazepam 0.5 MG Tablet PO SCH (09:00)
[2018-11-09] MEDS ORDERED: LORazepam 0.5 MG Tablet PO PRN (12:44)
[2018-11-09] MEDS: Dextrose 5% in Water Inj 1,000 ML IV.CONT SCH (13:09)
--- NOTE | 2018-11-09 20:40 | ECG ---
Date Performed: 11/08/2018 Time Performed: 21:54:08 PTAGE: 68 years EKG: Sinus rhythm POSSIBLE LEFT ATRIAL ENLARGEMENT BORDERLINE ECG PREVIOUS TRACING : 01/10/2017 10.20 DOCTOR: Bk Rice Interpretating Date/Time 11/09/2018 20:38:02
[2018-11-10] MEDS: Dextrose 5% in Water Inj 1,000 ML IV.CONT SCH ×2 (03:31→03:32)
--- NOTE | 2018-11-10 08:01 | P.PNIM ---
Subjective Interval history: No changes overnight. Pt refused to work with PT yesterday. Physical Exam Vital signs: Last Vital Signs Temp 97.3 F L 11/10/18 07:54 Pulse 54 L 11/10/18 07:54 Resp 16 11/10/18 07:54 BP 140/63 11/10/18 07:54 Pulse Ox 98 11/10/18 07:54 Narrative: GENERAL: NAD, Awake, alert, nonverbal CARDIO: Regular RESP: CTA bilaterally. ABD: +BS, soft, non-tender, nondistended EXT: Extremities without edema. No obvious deformities. Results Labs CBC & Chem 7: 11/08/18 22:00 11/10/18 08:36 Assessment and Plan Assessment (1) Acute UTI: Code(s): N39.0 - Urinary tract infection, site not specified Status: Acute (2) Acute dehydration: Code(s): E86.0 - Dehydration Status: Acute (3) Dementia in Alzheimer's disease: Code(s): G30.9 - Alzheimer's disease, unspecified; F02.80 - Dementia in other diseases classified elsewhere without behavioral disturbance Status: Chronic Plan NATALIA/Dehydration UTI Alzheimer's dementia - Pt is a 68 y/o female with end stage Alzheimer's dementia who presented to the ED at [facility] [place], [place] from a local senior care where she resides on 11/08/18 for a change in her usual activity level since 11/07/18. The patient has a history of severe dementia and is basically nonverbal at her baseline. The day prior to her ER visit she was noted to be walking less than usual and yesterday she was not walking at all. They also noticed that she had decreased urine output. - Her labs in the ED noted some signs of dehydration with elevated BUN 49 and Cr 1.07 which are higher than her baseline Cr which is around 0.5-0.7. - Her UA was also abnormal and urine culture is pending. - Pt was given IVF and a dose of Rocephin in the ED last night. - Cont. IVF - Encourage oral intake - PT recommending SNF - Urine culture with E. Coli and Strep Viridans. - Pt with reported allergy to Cipro with previous rash according to nursing staff. - Give Augmentin 500-125mg BID x 3 days. - Anticipate d/c back to [facility] with HHC/PT - Pt is to followup with her PCP, Dr. Tamar Fox, in 1 week. Attending Attestation Patient examined. Assessment and plan formulated with Latonya Parikh PA-C. I agree with the above. dc back to [facility]. abx for UTI> Progress Note: Quality VTE Deep Vein Thrombosis/Pulmonary Embolism Present on Admission: No
[2018-11-10 09:56] LABS: Anion Gap 6 meq/L (5-15); Blood Urea Nitrogen 19 mg/dL (7-18); Carbon Dioxide 27.6 meq/L (21.0-32.0); Chloride 109 meq/L (98-107); Glomerular Filtration Rate Greater Than 89 mL/min (>89); Glucose,Random 97 mg/dL (74-106); Potassium 3.4 meq/L (3.5-5.1); Sodium 143 meq/L (136-145)
[2018-11-10] MEDS ORDERED: Potassium Chloride 10 MEQ ER Capsule PO ONE (10:57)
[2018-11-10] MEDS ORDERED: Sodium Chloride 0.9% 2 ML Flush PRN IV.FLUSH (11:04)
[2018-11-10] MEDS ORDERED: Ciprofloxacin 500 MG Tablet PO SCH (13:00)
--- NOTE | 2018-11-10 13:49 | P.DCO ---
Diagnosis (1) Acute UTI: Status: Acute (2) Acute dehydration: Status: Acute (3) Dementia in Alzheimer's disease: Status: Chronic Physical Therapy Order: Evaluate and treat, Improve ambulation and Strength and gait training Home Health Nursing Order: Nursing assessment with vital signs Case Management Consult Case Management Consult-Home Health: Yes I have seen patient Madhavi Holm on 11/10/18. My clinical findings support the need for the requested home health care services because: Limited ability to care for self and Impaired cognition/judgement I certify that my clinical findings support that this patient is homebound because: Impaired cognitive ability/safety
[2018-11-10] MEDS ORDERED: Sodium Chloride 0.9% 2 ML Flush BID IV.FLUSH SCH (21:00)
== END 2018-11-10 16:23 | disposition home health service (06) ==
LOC: NEPC 21:30 → NEDA 21:30 → NEPHCDU 11-09 00:53
PROVIDERS: ADMIT Hospitalist; ATTEND Hospitalist
CPT/HCPCS: 70450; 71010; 71045; 72125; 72170; 80048; 80053; 81001; 82550; 82552; 83690; 83735; 84484; 85025; 85610; 85730; 87077; 87086; 87186; 90761; 90765; 93005; 96361; 96365; 96366; 97162; 99285; G0378; G8987; G8988; J0696; J3480; J7040; J7070; P9612; Q0163